=== PATIENT | female | born 1950 | race American Indian/Alaskan Native ===

== ENCOUNTER 2021-06-23 17:17 | Inpatient (IN) | payer MEDICARE ==
[2021-06-23] MEDS ORDERED: SODIUM CHLORIDE 0.9% 1000 ML 1,000 ML IV ONE (17:24)
--- NOTE | 2021-06-23 17:53 | XRay Report ---
CHEST 1 VIEW 06/23/2021 4:46 PM INDICATION / CLINICAL INFORMATION: Lightheadedness/Dizziness. COMPARISON: None available. FINDINGS: SUPPORT DEVICES: None. HEART / MEDIASTINUM: No significant abnormality. LUNGS / PLEURA: No significant pulmonary or pleural abnormality. No pneumothorax. ADDITIONAL FINDINGS: No significant additional findings. IMPRESSION: 1. No acute findings. Signer Name: Casimiro Langford MD Signed: 06/23/2021 5:48 PM Workstation Name: [id number]
[2021-06-23 18:03] LABS: Basophils % (Auto) 0.8 % (0.0-1.8); Eosinophils % (Auto) 0.6 % (0.0-4.3); Hematocrit 40.1 % (30.3-42.9); Hemoglobin 13.4 gm/dl (10.1-14.3); Lymphocytes # (Auto) 1.4 K/mm3 (1.2-5.4); Lymphocytes % (Auto) 28.1 % (13.4-35.0); Mean Corpuscular HGB Conc 34 % (30-34); Mean Corpuscular Volume 94 fl (79-97); Monocytes # (Auto) 0.4 K/mm3 (0.0-0.8); Monocytes % (Auto) 9.1 % (0.0-7.3); Platelet Count 225 K/mm3 (140-440); Red Blood Count 4.28 M/mm3 (3.65-5.03); Red Cell Distribution Width 14.3 % (13.2-15.2)
[2021-06-23 18:21] LABS: Creatine Kinase MB 2.6 ng/mL (0.0-4.0)
[2021-06-23 18:23] LABS: Alanine Aminotransferase 10 units/L (7-56); Albumin 4.6 g/dL (3.9-5); BUN/Creatinine Ratio 17; Blood Urea Nitrogen 15 mg/dL (7-17); Calcium 9.5 mg/dL (8.4-10.2); Hemolysis Index 5
--- NOTE | 2021-06-23 19:13 | Cat Scan Report ---
CT head/brain wo con INDICATION / CLINICAL INFORMATION: 70 years Female; Lightheadedness/Dizziness. TECHNIQUE: Routine CT head without contrast. All CT scans at this location are performed using CT dos e reduction for ALARA by means of automated exposure control. COMPARISON: None. FINDINGS: BRAIN / INTRACRANIAL CONTENTS: Prominent ventricular system seen. Sulcal markings about the cerebral convexities are less well visualized than expected. The temporal horns of the lateral ventricles are within normal limits. Normal pressure hydrocephalus or central atrophy might be considered. Otherwise, no acute hemorrhage, mass effect, midline shift, or acute, large territorial infarct. Mild to moderate cerebral atrophy. Mild degree of hippocampal atrophy suggested bilaterally. There are [id number] areas of decreased attenuation in the white matter of the cerebral hemisph eres. These are nonspecific findings and may be related to microangiopathy (hypertension, diabetes, a therosclerosis), given the patient's age. It might be difficult to evaluate for small areas of ischem ia without diffusion imaging by MRI. CRANIOCERVICAL JUNCTION: No significant abnormality. ORBITS: No significant abnormality of visualized orbits. SINUSES / MASTOIDS: Visualized paranasal sinuses and mastoid air cells are essentially clear. ADDITIONAL FINDINGS: Atherosclerotic disease is seen in the anterior circulation. IMPRESSION: 1. Normal pressure hydrocephalus might be consideration. Please clinically correlate. 2. Otherwise, no focal mass, hemorrhage, obstructive hydrocephalus, or acute, large territorial infar ct. Signer Name: Adam Serrano MD, III Signed: 06/23/2021 7:09 PM Workstation Name: [id number]
--- NOTE | 2021-06-23 20:09 | Emergency Department Report ---
ED Dizziness HPI - General Chief Complaint: Dizziness Stated Complaint: WEAKNESS Time Seen by Provider: 06/23/21 17:24 Source: patient Mode of arrival: Ambulatory Limitations: No Limitations - History of Present Illness Initial Comments: dizziness with loss of balance x4 days, pt states that she has fallen three time and hit her head on the bed several days ago. Pt states that she feels like her legs aren't there. Complaint: dizziness, lightheadedness -: Gradual, days(s) Timing: constant Description: lightheadedness, off-balance History of Same: No History of Trauma: No Severity: mild Improves With: nothing - Related Data Previous Rx's Medication Instructions Recorded Last Taken Type levoFLOXacin [Levaquin] 750 mg PO QDAY #4 tablet 11/11/18 Unknown Rx oxyCODONE /ACETAMINOPHEN [Percocet 1 tab PO Q6HR PRN #10 tablet 11/11/18 Unknown Rx 5/325] Allergies Allergy/AdvReac Type Severity Reaction Status Date / Time acetaminophen AdvReac Rash,SEVERE Unverified 09/18/15 11:48 HEADACHE Estrogens AdvReac Unknown Unverified 09/18/15 11:48 tramadol AdvReac Rash,ITCHIN Verified 06/23/21 17:24 G ED Review of Systems ROS: Stated complaint: WEAKNESS Other details as noted in HPI Constitutional: denies: chills, fever Eyes: denies: eye pain, eye discharge, vision change ENT: denies: ear pain, throat pain Respiratory: denies: cough, shortness of breath, wheezing Cardiovascular: denies: chest pain, palpitations Endocrine: no symptoms reported Gastrointestinal: denies: abdominal pain, nausea, diarrhea Genitourinary: denies: urgency, dysuria, discharge Musculoskeletal: denies: back pain, joint swelling, arthralgia Skin: denies: rash, lesions Neurological: denies: headache, weakness, paresthesias Psychiatric: denies: anxiety, depression Hematological/Lymphatic: denies: easy bleeding, easy bruising ED Past Medical Hx - Past Medical History Previous Medical History?: No Hx Hypertension: No Hx COPD: Yes Hx HIV: No - Social History Smoking Status: Never Smoker - Medications Home Medications: Home Medications Medication Instructions Recorded Confirmed Last Taken Type levoFLOXacin [Levaquin] 750 mg PO QDAY #4 tablet 11/11/18 Unknown Rx oxyCODONE /ACETAMINOPHEN [Percocet 1 tab PO Q6HR PRN #10 tablet 11/11/18 Unknown Rx 5/325] ED Physical Exam - General Limitations: No Limitations General appearance: alert, in no apparent distress - Head Head exam: Present: atraumatic, normocephalic - Eye Eye exam: Present: normal appearance - ENT ENT exam: Present: mucous membranes moist - Neck Neck exam: Present: normal inspection - Respiratory Respiratory exam: Present: normal lung sounds bilaterally. Absent: respiratory distress - Cardiovascular Cardiovascular Exam: Present: regular rate, normal rhythm. Absent: systolic murmur, diastolic murmur, rubs, gallop - GI/Abdominal GI/Abdominal exam: Present: soft, normal bowel sounds - Extremities Exam Extremities exam: Present: normal inspection - Back Exam Back exam: Present: normal inspection - Neurological Exam Neurological exam: Present: alert, oriented X3 - Expanded Neurological Exam Expanded Patient oriented to: Present: person, place Speech: Present: fluid speech Motor strength exam: RUE: 3, LUE: 3, RLE: 3, LLE: 3 Best Eye Response ([place]): (4) open spontaneously Best Motor Response ([place]): (6) obeys commands Best Verbal Response ([place]): (5) oriented [place] Total: 15 - Psychiatric Psychiatric exam: Present: normal affect, normal mood - Skin Skin exam: Present: warm, dry, intact, normal color. Absent: rash ED Course Vital Signs 06/23/21 06/23/21 17:23 18:49 Temperature 98.3 F Pulse Rate 103 H 88 Respiratory 20 Rate Blood Pressure 122/85 O2 Sat by Pulse 97 Oximetry ED Medical Decision Making - Lab Data Result diagrams: 06/23/21 17:33 06/23/21 17:33 - EKG Data -: EKG Interpreted by Ct EKG shows normal: sinus rhythm Rate: normal - EKG Data When compared to previous EKG there are: no significant change - Radiology Data Radiology results: report reviewed, image reviewed - Medical Decision Making work up unremarkable , head ct showed possible hydro , will admit for MRI , vss no distress Critical care attestation.: If time is entered above; I have spent that time in minutes in the direct care of this critically ill patient, excluding procedure time. ED Disposition Clinical Impression: Dizziness, Weakness Disposition: ADMITTED INPATIENT Is pt being admited?: Yes Does the pt Need Aspirin: No Condition: Stable Referrals: PRIMARY CARE,MD [Primary Care Provider] - 3-5 Days
[2021-06-23] MEDS ORDERED: ALBUTEROL 2.5 MG/3 ML NEBU IH PRN (21:16)
[2021-06-23] MEDS ORDERED: ONDANSETRON 4 MG/2 ML INJ IV PRN (21:16)
[2021-06-23] MEDS ORDERED: ACETAMINOPHEN 325 MG TAB PO PRN (21:16)
[2021-06-23] MEDS ORDERED: HYDROmorphone 1 MG/1 ML INJ IV PRN (21:16)
--- NOTE | 2021-06-23 21:26 | History and Physical Report ---
History of Present Illness Date of examination: 06/23/21 Date of admission: 06/23/21 Chief complaint: Dizziness Lightheadedness History of present illness: 70 years old female with history of hypertension, COPD was brought to the emergency room because of dizziness with loss of balance x4 days.patient also complained of lightheadedness pt states that she has fallen three time and hit her head on the bed several days ago. Pt states that she feels like her legs are n't there. Patient also complained of decreased sensation in the legs and blurred vision. In the emergency room work up unremarkable , head ct showed possible hydro , so going to admit the patient we will put the patient on stroke pathway, consult neurology and order MRI of the brain with and without Past History Past Medical History: COPD, HIV/AIDS, hypertension Past Surgical History: No surgical history Social history: other (No smoke) Family history: hypertension Medications and Allergies Allergies Allergy/AdvReac Type Severity Reaction Status Date / Time acetaminophen AdvReac Rash,SEVERE Unverified 09/18/15 11:48 HEADACHE Estrogens AdvReac Unknown Unverified 09/18/15 11:48 tramadol AdvReac Rash,ITCHIN Verified 06/23/21 17:24 G Home Medications Medication Instructions Recorded Confirmed Last Taken Type levoFLOXacin [Levaquin] 750 mg PO QDAY #4 tablet 11/11/18 Unknown Rx oxyCODONE /ACETAMINOPHEN [Percocet 1 tab PO Q6HR PRN #10 tablet 11/11/18 Unknown Rx 5/325] Review of Systems All systems: negative Constitutional: weakness Neurological: weakness, other (Decreased sensation) Exam - Constitutional Vitals: Temp Pulse Resp BP Pulse Ox 98.3 F 88 20 122/85 97 06/23/21 17:23 06/23/21 18:49 06/23/21 17:23 06/23/21 17:23 06/23/21 17:23 General appearance: Present: no acute distress, well-nourished - EENT Eyes: Present: PERRL ENT: hearing intact, clear oral mucosa - Neck Neck: Present: supple, normal ROM - Respiratory Respiratory effort: normal Respiratory: bilateral: diminished - Cardiovascular Heart Sounds: Present: S1 & S2. Absent: rub, click - Extremities Extremities: pulses symmetrical, No edema Peripheral Pulses: within normal limits - Abdominal General gastrointestinal: Present: soft, non-tender, non-distended, normal bowel sounds Female genitourinary: Present: normal - Integumentary Integumentary: Present: clear, warm, dry - Musculoskeletal Musculoskeletal: gait normal, strength equal bilaterally - Psychiatric Psychiatric: appropriate mood/affect, intact judgment & insight - Neurologic Neurologic: CNII-XII intact, moves all extremities HEART Score - HEART Score Troponin: Troponin T < 0.010 ng/mL (0.00-0.029) 06/23/21 17:33 Results - Labs CBC & Chem 7: 06/23/21 17:33 06/23/21 17:33 Labs: Laboratory Last Values WBC 4.9 K/mm3 (4.5-11.0) 06/23/21: RBC 4.28 M/mm3 (3.65-5.03) 06/23/21: Hgb 13.4 gm/dl (10.1-14.3) 06/23/21: Hct 40.1 % (30.3-42.9) 06/23/21: MCV 94 fl (79-97) 06/23/21 17: MCH 31 pg (28-32) 06/23/21 17: MCHC 34 % (30-34) 06/23/21: RDW 14.3 % (13.2-15.2) 06/23/21: Plt Count 225 K/mm3 (140-440) 06/23/21 17: Lymph % (Auto) 28.1 % (13.4-35.0) 06/23/21 17: [place] % (Auto) 9.1 % (0.0-7.3) H 06/23/21 17: Eos % (Auto) 0.6 % (0.0-4.3) 06/23/21 17: Baso % (Auto) 0.8 % (0.0-1.8) 06/23/21: Lymph # (Auto) 1.4 K/mm3 (1.2-5.4) 06/23/21: [place] # (Auto) 0.4 K/mm3 (0.0-0.8) 06/23/21 17: Eos # (Auto) 0.0 K/mm3 (0.0-0.4) 06/23/21 17:33 Baso # (Auto) 0.0 K/mm3 (0.0-0.1) 06/23/21 17:33 Seg Neutrophils % 61.4 % (40.0-70.0) 06/23/21 17:33 Seg Neutrophils # 3.0 K/mm3 (1.8-7.7) 06/23/21 17:33 Sodium 142 mmol/L (137-145) 06/23/21 17:33 Potassium 3.5 mmol/L (3.6-5.0) L 06/23/21 17:33 Chloride 103.2 mmol/L (98-107) 06/23/21 17:33 Carbon Dioxide 22 mmol/L (22-30) 06/23/21 17:33 Anion Gap 20 mmol/L 06/23/21 17:33 BUN 15 mg/dL (7-17) 06/23/21 17:33 Creatinine 0.9 mg/dL (0.6-1.2) 06/23/21 17:33 Estimated GFR > 60 ml/min 06/23/21 17:33 BUN/Creatinine Ratio 17 % 06/23/21 17:33 Glucose 122 mg/dL (65-100) H 06/23/21 17:33 POC Glucose 140 mg/dL (70-105) H 06/23/21 17:20 Calcium 9.5 mg/dL (8.4-10.2) 06/23/21 17:33 Total Bilirubin 1.00 mg/dL (0.1-1.2) 06/23/21 17:33 AST 14 units/L (5-40) 06/23/21 17:33 ALT 10 units/L (7-56) 06/23/21 17:33 Alkaline Phosphatase 87 units/L (35-129) 06/23/21 17:33 Total Creatine Kinase 106 units/L (30-135) 06/23/21 17:33 CK-MB (CK-2) 2.6 ng/mL (0.0-4.0) 06/23/21 17:33 CK-MB (CK-2) Rel Index 2.4 (0-4) 06/23/21 17:33 Troponin T < 0.010 ng/mL (0.00-0.029) 06/23/21 17:33 Total Protein 7.1 g/dL (6.3-8.2) 06/23/21 17:33 Albumin 4.6 g/dL (3.9-5) 06/23/21 17:33 Albumin/Globulin Ratio 1.8 % 06/23/21 17:33 Plasma/Serum Alcohol < 0.01 % (0-0.07) 06/23/21 17:33 - Imaging and Cardiology CT Scan - head: report reviewed Assessment and Plan VTE prophylaxis?: Mechanical Plan of care discussed with patient/family: Yes - Patient Problems (1) Dizziness Current Visit: Yes Status: Acute Plan to address problem: Admit the patient to the medical telemetry. NPO. Aspirin 325 mg p.o. daily. Lipitor 40 mg p.o. daily. MRI brain with and without contrast. MRI of the brain and neck with and without contrast. Neurology evaluation. PT OT any speech (2) Weakness Current Visit: Yes Status: Acute Plan to address problem: Will continue the home medication, PT OT any speech evaluation (3) COPD (chronic obstructive pulmonary disease) Current Visit: Yes Status: Acute Plan to address problem: Oxygen via nasal cannula 3 L/min. DuoNeb by nebulizer every 4 hours. Albuterol via nebulizer every 4 hours as needed (4) Hypertension Current Visit: Yes Status: Acute Plan to address problem: Labetalol 10 mg IV every 1 hour as needed. We continue the home medication (5) HIV (human immunodeficiency virus infection) Current Visit: Yes Status: Acute Plan to address problem: Stable. Continue home medication. Outpatient follow-up with infectious disease (6) DVT prophylaxis Current Visit: No Status: Acute Plan to address problem: SCD for DVT prophylaxis. Pepcid 20 mg p.o. twice daily for GI prophylaxis. Patient is a full code
[2021-06-23] MEDS ORDERED: D5W/0.9% NACL 1,000 ML IV SCH (22:00)
[2021-06-24] MEDS ORDERED: SODIUM CHLORIDE 0.9% 1000 ML 1,000 ML ONE (00:39)
[2021-06-24] MEDS: MORPHINE 2 MG/1 ML INJ IV PRN ×2 (00:49→05:06)
[2021-06-24] MEDS: FAMOTIDINE 20 MG TAB PO SCH ×3 (00:49→21:48)
[2021-06-24] MEDS: IPRATROPIUM/ALBUTEROL SULFATE 3 ML AMPUL.NEB IH SCH ×4 (03:15→21:13)
[2021-06-24 06:03] LABS: Basophils % (Auto) 0.4 % (0.0-1.8); Eosinophils # (Auto) 0.2 K/mm3 (0.0-0.4); Eosinophils % (Auto) 3.4 % (0.0-4.3); Hematocrit 35.5 % (30.3-42.9); Hemoglobin 11.7 gm/dl (10.1-14.3); Lymphocytes # (Auto) 1.9 K/mm3 (1.2-5.4); Lymphocytes % (Auto) 40.4 % (13.4-35.0); Mean Corpuscular HGB Conc 33 % (30-34); Mean Corpuscular Volume 94 fl (79-97); Monocytes # (Auto) 0.6 K/mm3 (0.0-0.8); Monocytes % (Auto) 12.6 % (0.0-7.3); Platelet Count 185 K/mm3 (140-440); Red Blood Count 3.76 M/mm3 (3.65-5.03); Red Cell Distribution Width 14.2 % (13.2-15.2)
[2021-06-24 06:24] LABS: Blood Urea Nitrogen 11 mg/dL (7-17); Calcium 8.8 mg/dL (8.4-10.2); Chol/HDL Ratio 5.73 %; HDL Cholesterol 42 mg/dL (40-59); Hemolysis Index 4; LDL Cholesterol,Direct 183 mg/dL (50-130)
[2021-06-24 06:28] LABS: BUN/Creatinine Ratio 16
--- NOTE | 2021-06-24 09:48 | Progress Note ---
Assessment and Plan Assessment and plan: -- Dizziness Fall precautions physical therapy occupational therapy Orthostats, supportive care --Generalized weakness Will continue the home medication, PT OT any speech evaluation --COPD (chronic obstructive pulmonary disease) well compensated Oxygen via nasal cannula 3 L/min. DuoNeb by nebulizer every 4 hours. Albuterol via nebulizer every 4 hours as needed -- Hypertension; moderate control Labetalol 10 mg IV every 1 hour as needed. Closely monitor blood pressures and adjust medications as needed --HIV (human immunodeficiency virus infection) Stable. Continue home medication. Outpatient follow-up with infectious disease --Full CODE STATUS; --DVT prophylaxis SCD for DVT prophylaxis. Pepcid 20 mg p.o. twice daily for GI prophylaxis. Closely monitor the patient and adjust the management as needed Plan of care reviewed with the patient and her nurse History Interval history: I have seen and examined the patient at the bedside Patient's chart and medications reviewed patient had recurrent Falls Patient reports that she did not lose consciousness She has some chronic back problems Complains of chronic back pain Vital signs noted Hospitalist Physical - Constitutional Vitals: Temp Pulse Resp BP Pulse Ox 98.5 F 56 L 18 100/56 95 06/24/21 07:43 06/24/21 07:43 06/24/21 07:43 06/24/21 07:43 06/24/21 07:43 General appearance: Present: no acute distress, well-nourished - EENT Eyes: Present: PERRL, EOM intact - Neck Neck: Present: supple, normal ROM - Respiratory Respiratory effort: normal Respiratory: bilateral: diminished, negative: rales, rhonchi, wheezing - Cardiovascular Rhythm: regular Heart Sounds: Present: S1 & S2 - Extremities Extremities: no ischemia, No edema - Abdominal General gastrointestinal: soft, non-tender, non-distended, normal bowel sounds - Integumentary Integumentary: Present: clear, warm - Psychiatric Psychiatric: appropriate mood/affect, cooperative - Neurologic Neurologic: moves all extremities HEART Score - HEART Score Troponin: Troponin T < 0.010 ng/mL (0.00-0.029) 06/23/21 17:33 Results - Labs CBC & Chem 7: 06/24/21 05:33 06/24/21 05:33 Labs: Laboratory Last Values WBC 4.6 K/mm3 (4.5-11.0) 06/24/21 05:33 RBC 3.76 M/mm3 (3.65-5.03) 06/24/21 05:33 Hgb 11.7 gm/dl (10.1-14.3) 06/24/21 05:33 Hct 35.5 % (30.3-42.9) 06/24/21 05:33 MCV 94 fl (79-97) 06/24/21 05:33 MCH 31 pg (28-32) 06/24/21 05:33 MCHC 33 % (30-34) 06/24/21 05:33 RDW 14.2 % (13.2-15.2) 06/24/21 05:33 Plt Count 185 K/mm3 (140-440) 06/24/21 05:33 Lymph % (Auto) 40.4 % (13.4-35.0) H 06/24/21 05:33 [place] % (Auto) 12.6 % (0.0-7.3) H 06/24/21 05:33 Eos % (Auto) 3.4 % (0.0-4.3) 06/24/21 05:33 Baso % (Auto) 0.4 % (0.0-1.8) 06/24/21 05:33 Lymph # (Auto) 1.9 K/mm3 (1.2-5.4) 06/24/21 05:33 [place] # (Auto) 0.6 K/mm3 (0.0-0.8) 06/24/21 05:33 Eos # (Auto) 0.2 K/mm3 (0.0-0.4) 06/24/21 05:33 Baso # (Auto) 0.0 K/mm3 (0.0-0.1) 06/24/21 05:33 Seg Neutrophils % 43.2 % (40.0-70.0) 06/24/21 05:33 Seg Neutrophils # 2.0 K/mm3 (1.8-7.7) 06/24/21 05:33 Sodium 143 mmol/L (137-145) 06/24/21 05:33 Potassium 3.4 mmol/L (3.6-5.0) L 06/24/21 05:33 Chloride 108.9 mmol/L (98-107) H 06/24/21 05:33 Carbon Dioxide 22 mmol/L (22-30) 06/24/21 05:33 Anion Gap 16 mmol/L 06/24/21 05:33 BUN 11 mg/dL (7-17) 06/24/21 05:33 Creatinine 0.7 mg/dL (0.6-1.2) 06/24/21 05:33 Estimated GFR > 60 ml/min 06/24/21 05:33 BUN/Creatinine Ratio 16 % 06/24/21 05:33 Glucose 111 mg/dL (65-100) H 06/24/21 05:33 POC Glucose 140 mg/dL (70-105) H 06/23/21 17:20 Calcium 8.8 mg/dL (8.4-10.2) 06/24/21 05:33 Total Bilirubin 1.00 mg/dL (0.1-1.2) 06/23/21 17:33 AST 14 units/L (5-40) 06/23/21 17:33 ALT 10 units/L (7-56) 06/23/21 17:33 Alkaline Phosphatase 87 units/L (35-129) 06/23/21 17:33 Total Creatine Kinase 106 units/L (30-135) 06/23/21 17:33 CK-MB (CK-2) 2.6 ng/mL (0.0-4.0) 06/23/21 17:33 CK-MB (CK-2) Rel Index 2.4 (0-4) 06/23/21 17:33 Troponin T < 0.010 ng/mL (0.00-0.029) 06/23/21 17:33 Total Protein 7.1 g/dL (6.3-8.2) 06/23/21 17:33 Albumin 4.6 g/dL (3.9-5) 06/23/21 17:33 Albumin/Globulin Ratio 1.8 % 06/23/21 17:33 Triglycerides 47 mg/dL (2-149) 06/24/21 05:33 Cholesterol 241 mg/dL (50-199) H 06/24/21 05:33 LDL Cholesterol Direct 183 mg/dL (50-130) H 06/24/21 05:33 HDL Cholesterol 42 mg/dL (40-59) 06/24/21 05:33 Cholesterol/HDL Ratio 5.73 % 06/24/21 05:33 Plasma/Serum Alcohol < 0.01 % (0-0.07) 06/23/21 17:33 Active Medications - Current Medications Current Medications: Generic Name Dose Route Start Last Admin Trade Name Freq PRN Reason Stop Dose Admin Acetaminophen 650 mg 06/23/21 21:16 Acetaminophen 325 Mg Tab PO Q4H PRN Pain MILD(1-3)/Fever >100.5/BARKER Albuterol 2.5 mg 06/23/21 21:16 Albuterol 2.5 Mg/3 Ml Nebu IH Q3HRT PRN Shortness Of Breath Albuterol/Ipratropium 1 ampul 06/24/21 02:00 06/24/21 09:24 Ipratropium/Albuterol Sulfate 3 Ml Ampul.Neb IH Not Given Q6HRT MAIK Aspirin 325 mg 06/24/21 10:00 Aspirin 325 Mg Tab PO QDAY MAIK Atorvastatin Calcium 40 mg 06/23/21 22:00 06/24/21 00:49 Atorvastatin 40 Mg Tab PO 40 mg QHS MAIK Administration Famotidine 20 mg 06/23/21 22:00 06/24/21 00:49 Famotidine 20 Mg Tab PO 20 mg BID MAIK Administration Hydromorphone HCl 0.5 mg 06/23/21 21:16 Hydromorphone 1 Mg/1 Ml Inj IV Q3H PRN Pain , Severe (7-10) Dextrose/Sodium Chloride 1,000 mls @ 100 mls/hr 06/23/21 22:00 06/24/21 02:01 D5ns IV 100 mls/hr DIRECT MAIK Administration Labetalol HCl 10 mg 06/23/21 21:16 Labetalol 20 Mg/4 Ml Inj IV Q5MIN PRN to maintain SBP < 180 Morphine Sulfate 2 mg 06/23/21 21:16 06/24/21 05:06 Morphine 2 Mg/1 Ml Inj IV 2 mg Q4H PRN Administration Pain, Moderate (4-6) Ondansetron HCl 4 mg 06/23/21 21:16 06/24/21 00:49 Ondansetron 4 Mg/2 Ml Inj IV 4 mg Q8H PRN Administration Nausea And Vomiting Sodium Chloride 10 ml 06/23/21 22:00 06/24/21 02:06 Sodium Chloride 0.9% 10 Ml Flush Syringe IV Not Given BID MAIK Sodium Chloride 10 ml 06/23/21 21:16 Sodium Chloride 0.9% 10 Ml Flush Syringe IV PRN PRN LINE FLUSH
[2021-06-24] MEDS: ASPIRIN 325 MG TAB PO SCH (11:00)
--- NOTE | 2021-06-24 11:27 | Magnetic Resonance Report ---
MRI BRAIN WITHOUT CONTRAST INDICATION / CLINICAL INFORMATION: stroke--general weakness. TECHNIQUE: Multisequence, multiplanar images were obtained. COMPARISON: CT head dated 06/23/2021 FINDINGS: CEREBRAL and CEREBELLAR HEMISPHERES: No evidence of mass or mass effect. No midline shift. No acute hemorrhage. No diffusion restriction to suggest acute infarct. No extra-axial fluid collection. M ild increased T2 signal in the periventricular white matter is noted consistent with chronic microang iopathy. No chronic infarct is identified. VENTRICLES: Slightly prominent but symmetric. VISUALIZED ORBITS: No significant abnormality. VISUALIZED PARANASAL SINUSES: No significant abnormality. ADDITIONAL FINDINGS: None. IMPRESSION: No evidence for acute ischemia, hemorrhage or mass. Nonspecific chronic periventricular white matter changes. Mild prominence of the ventricular system is again noted which could be related to normal pressure hy drocephalus or central atrophy. Unchanged since the CT head performed yesterday. Signer Name: Peter Reynoso Jr, MD Signed: 06/24/2021 11:22 AM Workstation Name: [id number]
--- NOTE | 2021-06-24 11:30 | Magnetic Resonance Report ---
MRA HEAD WITHOUT CONTRAST HISTORY: Stroke, generalized weakness COMPARISON: None. TECHNIQUE: Routine MRA of the head is performed. 3-D/MIP reformats postprocessed. CONTRAST: None. FINDINGS: Intracranial vertebral arteries: No significant abnormality. Basilar artery: No significant abnormality. Posterior cerebral arteries: No significant abnormality. Intracranial internal carotid arteries: No significant abnormality. Anterior cerebral arteries: No significant abnormality. Middle cerebral arteries: No significant abnormality. Variants and anomalies:None Additional findings: None. IMPRESSION: No significant abnormality. No evidence for large vessel occlusion, stenosis or aneurysm. Signer Name: Peter Reynoso Jr, MD Signed: 06/24/2021 11:25 AM Workstation Name: [id number]
--- NOTE | 2021-06-24 13:33 | Cat Scan Report ---
CT angio neck INDICATION / CLINICAL INFORMATION: 70 years Female; Stenosis 100 ML OMNI 350 . TECHNIQUE: Thin cut axial images obtained through the head during IV bolus contrast administration. S agittal, coronal, and 3 plane MIP reconstructions performed by the technologist. NASCET type criteria used evaluate stenoses. All CT scans at this location are performed using CT dose reduction for ALAR A by means of automated exposure control. COMPARISON: None available. FINDINGS: CAROTID ARTERIES: There are foci of atherosclerotic calcification involving carotid bifurcations with out significant stenosis by NASCET to criteria. The motion and beam hardening degrade the image quali ty. However, the cervical ICAs appear to demonstrate appropriate caliber without focal stenosis. VERTEBRAL ARTERIES: There is notable uncovertebral joint hypertrophy at C3-4 which results in milder to moderate to narrowing of the cervical left vertebral artery within the transverse foramen. There i s no significant focal narrowing involving the right vertebral artery. ARCH: The arch of vessels appear unremarkable without significant stenosis. ADDITIONAL FINDINGS: There is mild atherosclerotic calcification involving intracranial ICAs without clear evidence of significant stenosis. There are mild emphysematous changes of the visualized upper lungs. IMPRESSION: There are foci of atherosclerotic calcification involving carotid bifurcations without significant st enosis of the cervical carotid arteries by NASCET criteria. There is mild to moderate focal narrowing of the left vertebral artery within the transverse foramen at C3 level. The study was specified as stat and dictated emergently at 12:27 PM Central standard time. Signer Name: Steve Banegas MD Signed: 06/24/2021 1:29 PM Workstation Name: [id number]
--- NOTE | 2021-06-24 23:52 | Consultation ---
History of Present Illness Consult date: 06/24/21 Reason for Consult: Dizziness Chief complaint: Dizziness History of present illness: 70 yo right-handed female with htn, hiv/aids, copd, who presents with light- headedness w/ worsening with sitting/standing up and noted with unsteadiness while light-headed w/ unsteadiness of gait. Patient denies any focal neurologic deficits. Past History Past Medical History: COPD, HIV/AIDS, hypertension Past Surgical History: No surgical history Social history: other (No smoke) Family history: hypertension Medications and Allergies Allergies Allergy/AdvReac Type Severity Reaction Status Date / Time tramadol Allergy Rash,ITCHIN Verified 06/24/21 00:42 G acetaminophen AdvReac Rash,SEVERE Unverified 09/18/15 11:48 HEADACHE Estrogens AdvReac Unknown Verified 06/24/21 00:27 Home Medications Medication Instructions Recorded Confirmed Last Taken Type levoFLOXacin [Levaquin] 750 mg PO QDAY #4 tablet 11/11/18 Unknown Rx oxyCODONE /ACETAMINOPHEN [Percocet 1 tab PO Q6HR PRN #10 tablet 11/11/18 Unknown Rx 5/325] Active Meds: Active Medications Acetaminophen (Acetaminophen 325 Mg Tab) 650 mg PO Q4H PRN PRN Reason: Pain MILD(1-3)/Fever >100.5/BARKER Albuterol (Albuterol 2.5 Mg/3 Ml Nebu) 2.5 mg IH Q3HRT PRN PRN Reason: Shortness Of Breath Albuterol/Ipratropium (Ipratropium/Albuterol Sulfate 3 Ml Ampul.Neb) 1 ampul IH Q6HRT [facility] Last Admin: 06/24/21 21:13 Dose: 1 ampul Aspirin (Aspirin 325 Mg Tab) 325 mg PO QDAY [facility] Last Admin: 06/24/21 11:00 Dose: 325 mg Atorvastatin Calcium (Atorvastatin 40 Mg Tab) 40 mg PO QHS [facility] Last Admin: 06/24/21 21:48 Dose: 40 mg Famotidine (Famotidine 20 Mg Tab) 20 mg PO BID [facility] Last Admin: 06/24/21 21:48 Dose: 20 mg Hydromorphone HCl (Hydromorphone 1 Mg/1 Ml Inj) 0.5 mg IV Q3H PRN PRN Reason: Pain , Severe (7-10) Labetalol HCl (Labetalol 20 Mg/4 Ml Inj) 10 mg IV Q5MIN PRN PRN Reason: to maintain SBP < 180 Morphine Sulfate (Morphine 2 Mg/1 Ml Inj) 2 mg IV Q4H PRN PRN Reason: Pain, Moderate (4-6) Last Admin: 06/24/21 05:06 Dose: 2 mg Ondansetron HCl (Ondansetron 4 Mg/2 Ml Inj) 4 mg IV Q8H PRN PRN Reason: Nausea And Vomiting Last Admin: 06/24/21 00:49 Dose: 4 mg Sodium Chloride (Sodium Chloride 0.9% 10 Ml Flush Syringe) 10 ml IV BID MAIK Last Admin: 06/24/21 21:49 Dose: 10 ml Sodium Chloride (Sodium Chloride 0.9% 10 Ml Flush Syringe) 10 ml IV PRN PRN PRN Reason: LINE FLUSH Physical Examination - Vital Signs Vital Signs: Vital Signs Temp Pulse Resp BP Pulse Ox 98.3 F 103 H 20 122/85 97 06/23/21 17:23 06/23/21 17:23 06/23/21 17:23 06/23/21 17:23 06/23/21 17:23 - Physical Exam Narrative exam: Gen: nad, well-nourished; Head: normocephalic; Eyes: no gaze deviation; no ptosis; ENT: normal vocalization; CVS: warm and well-perfused; Pulm: no respiratory distress; GI: appears non-distended; Ext: no cyanosis appreciated at distal extremities; Skin: no acute rash at distal extremities; Heme: no pathologic ecchymosis appreciated at distal extremities; Neuro: alert, oriented to name, age, month, year, surroundings, no dysarthria, no aphasia, CN 2 - PERRL, visual schwartz grossly intact, CN 3, 4, 6 - EOMI, CN 5 - facial sensation symmetric to light touch, CN 7 - facial movement symmetric, CN 8 - hearing grossly intact, CN 9, 10 - uvula midline, CN 11 symmetric shoulder movement, CN 12 - tongue midline; Motor - at least 4/5 at all exts; Sensory - light touch symmetric, Cerebellar - fnf intact, Gait - deferred secondary to fall risk; Results - Laboratory Findings CBC and BMP: 06/24/21 05:33 06/24/21 05:33 Abnormal Lab Findings: Abnormal Labs 05/03/22 05/03/22 05/03/22 17:20 17:33 17:33 Lymph % (Auto) [place] % (Auto) 9.1 H Potassium 3.5 L Chloride Glucose 122 H POC Glucose 140 H Cholesterol LDL Cholesterol Direct 06/24/21 06/24/21 05:33 05:33 Lymph % (Auto) 40.4 H [place] % (Auto) 12.6 H Potassium 3.4 L Chloride 108.9 H Glucose 111 H POC Glucose Cholesterol 241 H LDL Cholesterol Direct 183 H Assessment and Plan 70 yo right-handed female with htn, hiv/aids, copd, who presents with light- headedness w/ worsening with sitting/standing up and noted with unsteadiness while light-headed w/ unsteadiness of gait. Patient denies any focal neurologic deficits. 1. Light-headed / Dizziness / Presyncope - mri brain and cta head/neck are unremarkable; recommend csf evaluation w/ cell count w/ diff, protein, glucose, cytology, flow cytometry; non-neurogenic workup per primary team. 2. HIV/AIDS - consider cd4 count; per primary team. 3. Hypetension - aim for normotension. 4. No further acute neurologic workup other than above mentioned csf evaluation. Carter Scott MD Neurology [id number]
[2021-06-25] MEDS: MORPHINE 2 MG/1 ML INJ IV PRN (00:05)
[2021-06-25] MEDS: IPRATROPIUM/ALBUTEROL SULFATE 3 ML AMPUL.NEB IH SCH ×4 (02:55→21:00)
[2021-06-25] MEDS: FAMOTIDINE 20 MG TAB PO SCH ×2 (09:39→21:25)
[2021-06-25] MEDS: ASPIRIN 325 MG TAB PO SCH (09:39)
--- NOTE | 2021-06-25 10:46 | Electrocardiograph Report ---
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
--- NOTE | 2021-06-26 00:06 | Progress Note ---
Assessment and Plan Assessment and plan: -No history of HIV[patient denies] Patient was seen by orthopedic/neuro from [facility], patient does not know the details. We will try to get records from [facility] --Chronic low back pain /lower extremity numbness and weakness CT lumbar spine: 06/27/2019 Vertebral compression fracture at L1 and L3 as well as L2 [no new fractures] Also has moderate thecal sac stenosis right foraminal stenosis at L4-L5 and L5- S1 disc levels. Consult orthopedic surgeon[discussed with Dr. Castle] Telemetry neurologist following PT[physical therapy] recommended home health PT and rolling walker -- Dizziness/generalized weakness Fall precautions physical therapy occupational therapy Orthostats, supportive care Neurology evaluated, patient had extensive negative neuro work-up Acute CVA ruled out Will continue the home medication, PT OT any speech evaluation --Constipation; Plenty fluids and fiber, milk of magnesia 1 dose now and daily as needed for constipation --COPD (chronic obstructive pulmonary disease) well compensated Oxygen via nasal cannula 3 L/min. DuoNeb by nebulizer every 4 hours. Albuterol via nebulizer every 4 hours as needed -- Hypertension; moderate control Labetalol 10 mg IV every 1 hour as needed. Closely monitor blood pressures and adjust medications as needed --Full CODE STATUS; --DVT prophylaxis SCD for DVT prophylaxis. Pepcid 20 mg p.o. twice daily for GI prophylaxis. Closely monitor the patient and adjust the management as needed Plan of care reviewed with the patient and her nurse History Interval history: I have seen and examined the patient at the bedside Patient's chart and medications consultants recommendations noted and appreciated Patient continues to have low back pain , patient is able to sit and go to the bathroom independently Patient's chart and medications reviewed, overall patient is getting better Hospitalist Physical - Constitutional Vitals: Temp Pulse Resp BP Pulse Ox 98.4 F 61 18 120/74 98 06/25/21 23:14 06/25/21 23:14 06/25/21 23:14 06/25/21 23:14 06/25/21 23:14 General appearance: Present: no acute distress, mild distress, well-nourished - EENT Eyes: Present: PERRL, EOM intact - Neck Neck: Present: supple, normal ROM - Respiratory Respiratory effort: normal Respiratory: bilateral: diminished, negative: rales, rhonchi, wheezing - Extremities Extremities: no ischemia, No edema - Abdominal General gastrointestinal: soft, non-tender, non-distended, normal bowel sounds - Integumentary Integumentary: Present: clear, warm - Psychiatric Psychiatric: appropriate mood/affect, cooperative - Neurologic Neurologic: moves all extremities HEART Score - HEART Score Troponin: Troponin T < 0.010 ng/mL (0.00-0.029) 06/23/21 17:33 Results - Labs CBC & Chem 7: 06/24/21 05:33 06/24/21 05:33 Labs: Laboratory Last Values WBC 4.6 K/mm3 (4.5-11.0) 06/24/21 05:33 RBC 3.76 M/mm3 (3.65-5.03) 06/24/21 05:33 Hgb 11.7 gm/dl (10.1-14.3) 06/24/21 05:33 Hct 35.5 % (30.3-42.9) 06/24/21 05:33 MCV 94 fl (79-97) 06/24/21 05:33 MCH 31 pg (28-32) 06/24/21 05:33 MCHC 33 % (30-34) 06/24/21 05:33 RDW 14.2 % (13.2-15.2) 06/24/21 05:33 Plt Count 185 K/mm3 (140-440) 06/24/21 05:33 Lymph % (Auto) 40.4 % (13.4-35.0) H 06/24/21 05:33 [place] % (Auto) 12.6 % (0.0-7.3) H 06/24/21 05:33 Eos % (Auto) 3.4 % (0.0-4.3) 06/24/21 05:33 Baso % (Auto) 0.4 % (0.0-1.8) 06/24/21 05:33 Lymph # (Auto) 1.9 K/mm3 (1.2-5.4) 06/24/21 05:33 [place] # (Auto) 0.6 K/mm3 (0.0-0.8) 06/24/21 05:33 Eos # (Auto) 0.2 K/mm3 (0.0-0.4) 06/24/21 05:33 Baso # (Auto) 0.0 K/mm3 (0.0-0.1) 06/24/21 05:33 Seg Neutrophils % 43.2 % (40.0-70.0) 06/24/21 05:33 Seg Neutrophils # 2.0 K/mm3 (1.8-7.7) 06/24/21 05:33 Sodium 143 mmol/L (137-145) 06/24/21 05:33 Potassium 3.4 mmol/L (3.6-5.0) L 06/24/21 05:33 Chloride 108.9 mmol/L (98-107) H 06/24/21 05:33 Carbon Dioxide 22 mmol/L (22-30) 06/24/21 05:33 Anion Gap 16 mmol/L 06/24/21 05:33 BUN 11 mg/dL (7-17) 06/24/21 05:33 Creatinine 0.7 mg/dL (0.6-1.2) 06/24/21 05:33 Estimated GFR > 60 ml/min 06/24/21 05:33 BUN/Creatinine Ratio 16 % 06/24/21 05:33 Glucose 111 mg/dL (65-100) H 06/24/21 05:33 POC Glucose 140 mg/dL (70-105) H 06/23/21 17:20 Calcium 8.8 mg/dL (8.4-10.2) 06/24/21 05:33 Total Bilirubin 1.00 mg/dL (0.1-1.2) 06/23/21 17:33 AST 14 units/L (5-40) 06/23/21 17:33 ALT 10 units/L (7-56) 06/23/21 17:33 Alkaline Phosphatase 87 units/L (35-129) 06/23/21 17:33 Total Creatine Kinase 106 units/L (30-135) 06/23/21 17:33 CK-MB (CK-2) 2.6 ng/mL (0.0-4.0) 06/23/21 17:33 CK-MB (CK-2) Rel Index 2.4 (0-4) 06/23/21 17:33 Troponin T < 0.010 ng/mL (0.00-0.029) 06/23/21 17:33 Total Protein 7.1 g/dL (6.3-8.2) 06/23/21 17:33 Albumin 4.6 g/dL (3.9-5) 06/23/21 17:33 Albumin/Globulin Ratio 1.8 % 06/23/21 17:33 Triglycerides 47 mg/dL (2-149) 06/24/21 05:33 Cholesterol 241 mg/dL (50-199) H 06/24/21 05:33 LDL Cholesterol Direct 183 mg/dL (50-130) H 06/24/21 05:33 HDL Cholesterol 42 mg/dL (40-59) 06/24/21 05:33 Cholesterol/HDL Ratio 5.73 % 06/24/21 05:33 Plasma/Serum Alcohol < 0.01 % (0-0.07) 06/23/21 17:33 Caballero/IV: Voiding Method Toilet Active Medications - Current Medications Current Medications: Generic Name Dose Route Start Last Admin Trade Name Freq PRN Reason Stop Dose Admin Acetaminophen 650 mg 06/23/21 21:16 Acetaminophen 325 Mg Tab PO Q4H PRN Pain MILD(1-3)/Fever >100.5/BARKER Albuterol 2.5 mg 06/23/21 21:16 Albuterol 2.5 Mg/3 Ml Nebu IH Q3HRT PRN Shortness Of Breath Aspirin 325 mg 06/24/21 10:00 06/25/21 09:39 Aspirin 325 Mg Tab PO Not Given QDAY MAIK Atorvastatin Calcium 40 mg 06/23/21 22:00 06/25/21 21:25 Atorvastatin 40 Mg Tab PO 40 mg QHS MAIK Administration Famotidine 20 mg 06/23/21 22:00 06/25/21 21:25 Famotidine 20 Mg Tab PO 20 mg BID MAIK Administration Hydromorphone HCl 0.5 mg 06/23/21 21:16 Hydromorphone 1 Mg/1 Ml Inj IV Q3H PRN Pain , Severe (7-10) Labetalol HCl 10 mg 06/23/21 21:16 Labetalol 20 Mg/4 Ml Inj IV Q5MIN PRN to maintain SBP < 180 Morphine Sulfate 2 mg 06/23/21 21:16 06/25/21 00:05 Morphine 2 Mg/1 Ml Inj IV 2 mg Q4H PRN Administration Pain, Moderate (4-6) Ondansetron HCl 4 mg 06/23/21 21:16 06/24/21 00:49 Ondansetron 4 Mg/2 Ml Inj IV 4 mg Q8H PRN Administration Nausea And Vomiting Sodium Chloride 10 ml 06/23/21 22:00 06/25/21 21:25 Sodium Chloride 0.9% 10 Ml Flush Syringe IV 10 ml BID MAIK Administration Sodium Chloride 10 ml 06/23/21 21:16 Sodium Chloride 0.9% 10 Ml Flush Syringe IV PRN PRN LINE FLUSH
--- NOTE | 2021-06-26 08:58 | Progress Note ---
Assessment and Plan Assessment and plan: --Severe low back pain severe low back pain -No history of HIV[patient denies] Patient was seen by private orthopedic/neuro from [facility], patient does not know the details. We will try to get records from [facility] --Chronic low back pain /lower extremity numbness and weakness CT lumbar spine: 06/27/2019 Vertebral compression fracture at L1 and L3 as well as L2 [no new fractures] Also has moderate thecal sac stenosis right foraminal stenosis at L4-L5 and L5- S1 disc levels. Consult orthopedic surgeon[discussed with Dr. Castle] Telemetry neurologist following PT[physical therapy] recommended home health PT and rolling walker -- Dizziness/generalized weakness Fall precautions physical therapy occupational therapy Orthostats, supportive care Neurology evaluated, patient had extensive negative neuro work-up Acute CVA ruled out Will continue the home medication, PT OT any speech evaluation --Constipation; Plenty fluids and fiber, milk of magnesia 1 dose now and daily as needed for constipation --COPD (chronic obstructive pulmonary disease) well compensated Oxygen via nasal cannula 3 L/min. DuoNeb by nebulizer every 4 hours. Albuterol via nebulizer every 4 hours as needed -- Hypertension; moderate control Labetalol 10 mg IV every 1 hour as needed. Closely monitor blood pressures and adjust medications as needed --Full CODE STATUS; --DVT prophylaxis SCD for DVT prophylaxis. Pepcid 20 mg p.o. twice daily for GI prophylaxis. Closely monitor the patient and adjust the management as needed Plan of care reviewed with the patient and her nurse Follow neurology and orthopedic evaluation recommendation Consider neurosurgical consultation inpatient versus outpatient History Interval history: Seen and examined the patient at the bedside Patient's chart and medications consultants recommendations noted and appreciated Patient complains of severe back pain radiating to bilateral lower extremities Patient's chart and medications reviewed, overall patient is getting better Hospitalist Physical - Constitutional Vitals: Temp Pulse Resp BP Pulse Ox 98.2 F 58 L 14 129/78 92 06/26/21 07:21 06/26/21 07:21 06/26/21 07:21 06/26/21 07:21 06/26/21 07:21 General appearance: Present: no acute distress, mild distress, well-nourished HEART Score - HEART Score Troponin: Troponin T < 0.010 ng/mL (0.00-0.029) 06/23/21 17:33 Results - Labs CBC & Chem 7: 06/24/21 05:33 06/24/21 05:33 Labs: Laboratory Last Values WBC 4.6 K/mm3 (4.5-11.0) 06/24/21 05:33 RBC 3.76 M/mm3 (3.65-5.03) 06/24/21 05:33 Hgb 11.7 gm/dl (10.1-14.3) 06/24/21 05:33 Hct 35.5 % (30.3-42.9) 06/24/21 05:33 MCV 94 fl (79-97) 06/24/21 05:33 MCH 31 pg (28-32) 06/24/21 05:33 MCHC 33 % (30-34) 06/24/21 05:33 RDW 14.2 % (13.2-15.2) 06/24/21 05:33 Plt Count 185 K/mm3 (140-440) 06/24/21 05:33 Lymph % (Auto) 40.4 % (13.4-35.0) H 06/24/21 05:33 [place] % (Auto) 12.6 % (0.0-7.3) H 06/24/21 05:33 Eos % (Auto) 3.4 % (0.0-4.3) 06/24/21 05:33 Baso % (Auto) 0.4 % (0.0-1.8) 06/24/21 05:33 Lymph # (Auto) 1.9 K/mm3 (1.2-5.4) 06/24/21 05:33 [place] # (Auto) 0.6 K/mm3 (0.0-0.8) 06/24/21 05:33 Eos # (Auto) 0.2 K/mm3 (0.0-0.4) 06/24/21 05:33 Baso # (Auto) 0.0 K/mm3 (0.0-0.1) 06/24/21 05:33 Seg Neutrophils % 43.2 % (40.0-70.0) 06/24/21 05:33 Seg Neutrophils # 2.0 K/mm3 (1.8-7.7) 06/24/21 05:33 Sodium 143 mmol/L (137-145) 06/24/21 05:33 Potassium 3.4 mmol/L (3.6-5.0) L 06/24/21 05:33 Chloride 108.9 mmol/L (98-107) H 06/24/21 05:33 Carbon Dioxide 22 mmol/L (22-30) 06/24/21 05:33 Anion Gap 16 mmol/L 06/24/21 05:33 BUN 11 mg/dL (7-17) 06/24/21 05:33 Creatinine 0.7 mg/dL (0.6-1.2) 06/24/21 05:33 Estimated GFR > 60 ml/min 06/24/21 05:33 BUN/Creatinine Ratio 16 % 06/24/21 05:33 Glucose 111 mg/dL (65-100) H 06/24/21 05:33 POC Glucose 140 mg/dL (70-105) H 06/23/21 17:20 Calcium 8.8 mg/dL (8.4-10.2) 06/24/21 05:33 Total Bilirubin 1.00 mg/dL (0.1-1.2) 06/23/21 17:33 AST 14 units/L (5-40) 06/23/21 17:33 ALT 10 units/L (7-56) 06/23/21 17:33 Alkaline Phosphatase 87 units/L (35-129) 06/23/21 17:33 Total Creatine Kinase 106 units/L (30-135) 06/23/21 17:33 CK-MB (CK-2) 2.6 ng/mL (0.0-4.0) 06/23/21 17:33 CK-MB (CK-2) Rel Index 2.4 (0-4) 06/23/21 17:33 Troponin T < 0.010 ng/mL (0.00-0.029) 06/23/21 17:33 Total Protein 7.1 g/dL (6.3-8.2) 06/23/21 17:33 Albumin 4.6 g/dL (3.9-5) 06/23/21 17:33 Albumin/Globulin Ratio 1.8 % 06/23/21 17:33 Triglycerides 47 mg/dL (2-149) 06/24/21 05:33 Cholesterol 241 mg/dL (50-199) H 06/24/21 05:33 LDL Cholesterol Direct 183 mg/dL (50-130) H 06/24/21 05:33 HDL Cholesterol 42 mg/dL (40-59) 06/24/21 05:33 Cholesterol/HDL Ratio 5.73 % 06/24/21 05:33 Plasma/Serum Alcohol < 0.01 % (0-0.07) 06/23/21 17:33 Caballero/IV: Voiding Method Toilet Active Medications - Current Medications Current Medications: Generic Name Dose Route Start Last Admin Trade Name Freq PRN Reason Stop Dose Admin Acetaminophen 650 mg 06/23/21 21:16 Acetaminophen 325 Mg Tab PO Q4H PRN Pain MILD(1-3)/Fever >100.5/BARKER Albuterol 2.5 mg 06/23/21 21:16 Albuterol 2.5 Mg/3 Ml Nebu IH Q3HRT PRN Shortness Of Breath Aspirin 325 mg 06/24/21 10:00 06/25/21 09:39 Aspirin 325 Mg Tab PO Not Given QDAY MAIK Atorvastatin Calcium 40 mg 06/23/21 22:00 06/25/21 21:25 Atorvastatin 40 Mg Tab PO 40 mg QHS MAIK Administration Famotidine 20 mg 06/23/21 22:00 06/25/21 21:25 Famotidine 20 Mg Tab PO 20 mg BID MAIK Administration Hydromorphone HCl 0.5 mg 06/23/21 21:16 Hydromorphone 1 Mg/1 Ml Inj IV Q3H PRN Pain , Severe (7-10) Labetalol HCl 10 mg 06/23/21 21:16 Labetalol 20 Mg/4 Ml Inj IV Q5MIN PRN to maintain SBP < 180 Morphine Sulfate 2 mg 06/23/21 21:16 06/25/21 00:05 Morphine 2 Mg/1 Ml Inj IV 2 mg Q4H PRN Administration Pain, Moderate (4-6) Ondansetron HCl 4 mg 06/23/21 21:16 06/24/21 00:49 Ondansetron 4 Mg/2 Ml Inj IV 4 mg Q8H PRN Administration Nausea And Vomiting Sodium Chloride 10 ml 06/23/21 22:00 06/25/21 21:25 Sodium Chloride 0.9% 10 Ml Flush Syringe IV 10 ml BID MAIK Administration Sodium Chloride 10 ml 06/23/21 21:16 Sodium Chloride 0.9% 10 Ml Flush Syringe IV PRN PRN LINE FLUSH
[2021-06-26] MEDS: FAMOTIDINE 20 MG TAB PO SCH ×2 (10:37→22:24)
[2021-06-26] MEDS: ASPIRIN 325 MG TAB PO SCH (11:29)
--- NOTE | 2021-06-26 13:15 | Cat Scan Report ---
CT LUMBAR SPINE WITHOUT CONTRAST HISTORY: Severe low back pain COMPARISON: None TECHNIQUE: CT images of the lumbar spine were obtained without contrast. Sagittal and coronal reform ats were post-processed.All CT scans at this location are performed using CT dose reduction for ALARA by means of automated exposure control. CONTRAST: CT scan of the lumbar spine from 11/10/2018 FINDINGS: Alignment: S-shaped scoliosis; dextroscoliosis centering at L1 and mild levoscoliosis centering at L4 Vertebrae: L1 vertebral body: Vertebral compression fracture with the almost 80% height loss; methylmethacrylate in the midportion of the body; retropulsion; no bony canal stenoses; neuroforamina are normal L2 vertebral body: Mild compression along the superior endplate of L2; unchanged; neuroforamina and c entral canal normal L3 vertebral body: Old healed vertebral compression fracture along the superior endplate; further hei ght loss since the last CT scan; methylmethacrylate in the body of the L3 extending into the L2-L3 di sc space; retropulsion; moderate thecal sac stenoses; this has progressed at L4 vertebral body: Uncha nged L5 vertebral body: Unchanged Ala of the sacrum: Normal Disc Spaces: L1-L2: Neuroforamina and thecal sac normal L2-L3: Retropulsion; moderate thecal sac stenoses; bulging disc; severe left foraminal stenoses L3-L4: Disc bulge; bilateral facet joint hypertrophic changes; mild thecal sac stenoses L4-L5: Moderate facet joint degenerative changes on the right side; diffuse disc bulge towards right side; moderate right foraminal stenoses L5-S1: Diffuse disc bulge towards right foraminal zone; moderate right foraminal stenoses; mild facet joint degenerative changes Additional Findings: None IMPRESSION: Vertebral compression fractures at the L1 and L3 with the methylmethacrylate; vertebral fracture orion g the superior endplate of L2 unchanged; no new fracture Moderate thecal sac stenoses and right foraminal stenoses at L4-L5 and right foraminal stenoses at L4 -L5 and L5-S1 disc levels Signer Name: Bridget Toscano MD Signed: 06/26/2021 1:10 PM Workstation Name: [id number]
[2021-06-26] MEDS: GABAPENTIN 300 MG CAP PO SCH ×2 (14:38→22:24)
[2021-06-26] MEDS ORDERED: MECLIZINE 12.5 MG TAB PO PRN (16:43)
[2021-06-26] MEDS: MAGNESIUM HYDROXIDE (MOM) ORAL LIQD UDC PO PRN (17:12)
--- NOTE | 2021-06-26 20:47 | Progress Note ---
Assessment and Plan 70 yo right-handed female with htn, hiv/aids, copd, who presents with light- headedness w/ worsening with sitting/standing up and noted with unsteadiness while light-headed w/ unsteadiness of gait. Patient denies any focal neurologic deficits. 1. Light-headed / Dizziness / Presyncope - mri brain and cta head/neck are unremarkable, non-neurogenic workup per primary team. 2. HIV/AIDS - pt has clariified that the H&P is incorrect and she does not have a hx of HIV/AIDS (per last progress note), therefore no csf studies needed at present. 3. Hypertension - aim for normotension. 4. Lower Back Pain w/ wo urinary retention - per last hospitalist note, I agree with orthopedic surgery to be on board; consider bladder scan to confirm objective finding; unfortunately, teleneurology does not allow for assessment of potential spinal pathologies secondary to detailed bedside exam that is needed to make such an assessment; may need to be transferred to a facility with bedside neurology and/or inpatient [id number] to help with the orthopedic surgery assessment. Communicated this last piece of information to the hospitalist. Carter Scott MD Neurology Subjective Date of service: 06/26/21 Principal diagnosis: Headache, Dizziness, Low Back Pain Interval history: Patient requested to speak to me. Discussed the case via telephone as televideo is not available at this time. She had questions about the lower back pain and associated weakness and difficulty with urination. She notes "I didn't think there was anyhting wrong with my head for the headache and dizziness" after we discussed the mri / cta results. She is unaware that Orthopedic Surgery has been consulted regarding her lower back findings on ct lumbar spine. Objective - Exam Narrative Exam: Patient not seen. - Vital Sign Vital Signs - 12hr 06/26/21 06/26/21 06/26/21 10:00 11:42 16:32 Temperature 98.3 F 98.3 F Pulse Rate 89 82 Respiratory 15 14 Rate Blood Pressure 114/83 119/80 O2 Sat by Pulse 98 92 93 Oximetry 06/26/21 19:07 Temperature 99.0 F Pulse Rate 83 Respiratory 16 Rate Blood Pressure 120/79 O2 Sat by Pulse 91 Oximetry - Laboratory Findings CBC and BMP: 06/24/21 05:33 06/24/21 05:33 Abnormal Lab Findings: Abnormal Labs 06/23/21 06/23/21 06/23/21 17:20 17:33 17:33 Lymph % (Auto) [place] % (Auto) 9.1 H Potassium 3.5 L Chloride Glucose 122 H POC Glucose 140 H Cholesterol LDL Cholesterol Direct 06/24/21 06/24/21 05:33 05:33 Lymph % (Auto) 40.4 H [place] % (Auto) 12.6 H Potassium 3.4 L Chloride 108.9 H Glucose 111 H POC Glucose Cholesterol 241 H LDL Cholesterol Direct 183 H
[2021-06-27 05:03] LABS: Blood Urea Nitrogen 10 mg/dL (7-17); Hemolysis Index 7
[2021-06-27 05:17] LABS: BUN/Creatinine Ratio 14
[2021-06-27] MEDS: GABAPENTIN 300 MG CAP PO SCH ×4 (07:38→21:36)
[2021-06-27] MEDS: ASPIRIN 325 MG TAB PO SCH (10:08)
[2021-06-27] MEDS: FAMOTIDINE 20 MG TAB PO SCH ×2 (10:08→21:36)
--- NOTE | 2021-06-27 11:11 | Progress Note ---
Subjective Date of service: 06/27/21 Principal diagnosis: Headache, Dizziness, Low Back Pain Interval history: NSGY update: received consultation from Dr. Umer Castle regarding pt's CT L spine results. I have reviewed the results in detail. There are severe chronic degenerative changes noted without acute finding.The degree of thecal sac and nerve root compression is difficult to determine. I recommend MRI L spine without contrast for further evaluation. I will follow up MRI results and fo rmulate treatment plan. Objective - Vital Sign Vital Signs - 12hr 06/27/21 06/27/21 06/27/21 03:47 08:51 10:00 Temperature 97.7 F 97.5 F L Pulse Rate 73 87 82 Respiratory 16 18 Rate Blood Pressure 117/63 95/71 O2 Sat by Pulse 93 94 98 Oximetry - Laboratory Findings CBC and BMP: 06/24/21 05:33 06/27/21 04:04 Abnormal Lab Findings: Abnormal Labs 06/23/21 06/23/21 06/23/21 17:20 17:33 17:33 Lymph % (Auto) [place] % (Auto) 9.1 H Potassium 3.5 L Chloride Glucose 122 H POC Glucose 140 H Magnesium Cholesterol LDL Cholesterol Direct 06/24/21 06/24/21 06/27/21 05:33 05:33 04:04 Lymph % (Auto) 40.4 H [place] % (Auto) 12.6 H Potassium 3.4 L Chloride 108.9 H 109.0 H Glucose 111 H POC Glucose Magnesium 2.40 H Cholesterol 241 H LDL Cholesterol Direct 183 H
--- NOTE | 2021-06-27 20:16 | Progress Note ---
Assessment and Plan Assessment and plan: No history of HIV[patient denies]error Patient was seen by private orthopedic/neuro from [facility], patient does not know the details. We will try to get records from [facility] --Chronic low back pain /lower extremity numbness and weakness CT lumbar spine: 06/27/2019; chronic findings Vertebral compression fracture at L1 and L3 as well as L2 [no new fractures] Also has moderate thecal sac stenosis right foraminal stenosis at L4-L5 and L5- S1 disc levels. -Ortho surgeon Dr. Castle's evaluation and recommendations noted and appreciated Follow recommendations -Neurosurgeon Dr. Peres evaluation and recommendations noted and appreciated MRI lumbar spine ordered, follow report and manage as needed -Telemetry neurologist evaluation and recommendations noted and appreciated PT[physical therapy] recommended home health PT and rolling walker -- Dizziness/generalized weakness Fall precautions physical therapy occupational therapy Neurology evaluated, Extensive negative neuro work-up , acute CVA ruled out Will continue the home medication, PT OT and speech therapy --Constipation; improved Plenty fluids and fiber, milk of magnesia 1 dose now and daily as needed for constipation --COPD (chronic obstructive pulmonary disease) well compensated Oxygen via nasal cannula 3 L/min. DuoNeb by nebulizer every 4 hours. Albuterol via nebulizer every 4 hours as needed -- Hypertension; moderate control Labetalol 10 mg IV every 1 hour as needed. Closely monitor blood pressures and adjust medications as needed --Full CODE STATUS; --DVT prophylaxis SCD for DVT prophylaxis. No pharmacologic anticoagulation [Anticipating surgical intervention] We will start Lovenox subcu for prophylaxis Closely monitor the patient and adjust the management as needed Plan of care reviewed with the patient and her nurse Awaiting records from [facility] For some reason patient is not getting her old records Not giving the names of her [place] neurologist, neurosurgeon, orthopedic surgeons names Patient reports that she has seen many physicians in the past and had extensive work-up Details are not known Disposition; follow MRI, try to get medical records from [place] or from the patient Follow consultants recommendations Plan of care reviewed with the patient and her nurse History Interval history: I have seen and examined the patient at the bedside Patient's chart and medications reviewed Patient patient has multiple chronic lumbar spine abnormalities CT lumbar spine evaluated by orthopedic surgeon as well as neurosurgeon Dr. Larisa Dey requested MRI brain without contrast Patient says that she feels slightly better today Vital signs noted Hospitalist Physical - Constitutional Vitals: Temp Pulse Resp BP Pulse Ox 98.1 F 69 18 108/76 96 06/27/21 16:27 06/27/21 16:27 06/27/21 16:27 06/27/21 16:27 06/27/21 16:27 General appearance: Present: no acute distress, mild distress, well-nourished - EENT Eyes: Present: PERRL, EOM intact - Neck Neck: Present: supple, normal ROM - Respiratory Respiratory effort: normal Respiratory: bilateral: diminished, negative: rales, rhonchi, wheezing - Cardiovascular Rhythm: regular Heart Sounds: Present: S1 & S2 - Extremities Extremities: no ischemia, No edema - Abdominal General gastrointestinal: soft, non-tender, non-distended, normal bowel sounds - Integumentary Integumentary: Present: clear, warm - Psychiatric Psychiatric: appropriate mood/affect, cooperative - Neurologic Neurologic: CNII-XII intact, moves all extremities HEART Score - HEART Score Troponin: Troponin T < 0.010 ng/mL (0.00-0.029) 06/23/21 17:33 Results - Labs CBC & Chem 7: 06/24/21 05:33 06/27/21 04:04 Labs: Laboratory Last Values WBC 4.6 K/mm3 (4.5-11.0) 06/24/21 05:33 RBC 3.76 M/mm3 (3.65-5.03) 06/24/21 05:33 Hgb 11.7 gm/dl (10.1-14.3) 06/24/21 05:33 Hct 35.5 % (30.3-42.9) 06/24/21 05:33 MCV 94 fl (79-97) 06/24/21 05:33 MCH 31 pg (28-32) 06/24/21 05:33 MCHC 33 % (30-34) 06/24/21 05:33 RDW 14.2 % (13.2-15.2) 06/24/21 05:33 Plt Count 185 K/mm3 (140-440) 06/24/21 05:33 Lymph % (Auto) 40.4 % (13.4-35.0) H 06/24/21 05:33 [place] % (Auto) 12.6 % (0.0-7.3) H 06/24/21 05:33 Eos % (Auto) 3.4 % (0.0-4.3) 06/24/21 05:33 Baso % (Auto) 0.4 % (0.0-1.8) 06/24/21 05:33 Lymph # (Auto) 1.9 K/mm3 (1.2-5.4) 06/24/21 05:33 [place] # (Auto) 0.6 K/mm3 (0.0-0.8) 06/24/21 05:33 Eos # (Auto) 0.2 K/mm3 (0.0-0.4) 06/24/21 05:33 Baso # (Auto) 0.0 K/mm3 (0.0-0.1) 06/24/21 05:33 Seg Neutrophils % 43.2 % (40.0-70.0) 06/24/21 05:33 Seg Neutrophils # 2.0 K/mm3 (1.8-7.7) 06/24/21 05:33 Sodium 145 mmol/L (137-145) 06/27/21 04:04 Potassium 4.0 mmol/L (3.6-5.0) 06/27/21 04:04 Chloride 109.0 mmol/L (98-107) H 06/27/21 04:04 Carbon Dioxide 26 mmol/L (22-30) 06/27/21 04:04 Anion Gap 14 mmol/L 06/27/21 04:04 BUN 10 mg/dL (7-17) 06/27/21 04:04 Creatinine 0.7 mg/dL (0.6-1.2) 06/27/21 04:04 Estimated GFR > 60 ml/min 06/27/21 04:04 BUN/Creatinine Ratio 14 % 06/27/21 04:04 Glucose 91 mg/dL (65-100) 06/27/21 04:04 POC Glucose 140 mg/dL (70-105) H 06/23/21 17:20 Calcium 9.0 mg/dL (8.4-10.2) 06/27/21 04:04 Phosphorus 3.10 mg/dL (2.5-4.5) 06/27/21 04:04 Magnesium 2.40 mg/dL (1.7-2.3) H 06/27/21 04:04 Total Bilirubin 1.00 mg/dL (0.1-1.2) 06/23/21 17:33 AST 14 units/L (5-40) 06/23/21 17:33 ALT 10 units/L (7-56) 06/23/21 17:33 Alkaline Phosphatase 87 units/L (35-129) 06/23/21 17:33 Total Creatine Kinase 106 units/L (30-135) 06/23/21 17:33 CK-MB (CK-2) 2.6 ng/mL (0.0-4.0) 06/23/21 17:33 CK-MB (CK-2) Rel Index 2.4 (0-4) 06/23/21 17:33 Troponin T < 0.010 ng/mL (0.00-0.029) 06/23/21 17:33 Total Protein 7.1 g/dL (6.3-8.2) 06/23/21 17:33 Albumin 4.6 g/dL (3.9-5) 06/23/21 17:33 Albumin/Globulin Ratio 1.8 % 06/23/21 17:33 Triglycerides 47 mg/dL (2-149) 06/24/21 05:33 Cholesterol 241 mg/dL (50-199) H 06/24/21 05:33 LDL Cholesterol Direct 183 mg/dL (50-130) H 06/24/21 05:33 HDL Cholesterol 42 mg/dL (40-59) 06/24/21 05:33 Cholesterol/HDL Ratio 5.73 % 06/24/21 05:33 Plasma/Serum Alcohol < 0.01 % (0-0.07) 06/23/21 17:33 [place]all[place]/IV: Voiding Method Toilet Active Medications - Current Medications Current Medications: Generic Name Dose Route Start Last Admin Trade Name Freq PRN Reason Stop Dose Admin Acetaminophen 650 mg 06/23/21 21:16 Acetaminophen 325 Mg Tab PO Q4H PRN Pain MILD(1-3)/Fever >100.5/BARKER Albuterol 2.5 mg 06/23/21 21:16 Albuterol 2.5 Mg/3 Ml Nebu IH Q3HRT PRN Shortness Of Breath Aspirin 325 mg 06/24/21 10:00 06/27/21 10:08 Aspirin 325 Mg Tab PO 325 mg QDAY MAIK Administration Atorvastatin Calcium 40 mg 06/23/21 22:00 06/26/21 22:24 Atorvastatin 40 Mg Tab PO 40 mg QHS MAIK Administration Famotidine 20 mg 06/23/21 22:00 06/27/21 10:08 Famotidine 20 Mg Tab PO 20 mg BID MAIK Administration Gabapentin 300 mg 06/26/21 14:00 06/27/21 13:56 Gabapentin 300 Mg Cap PO Not Given Q8HR MAIK Labetalol HCl 10 mg 06/23/21 21:16 Labetalol 20 Mg/4 Ml Inj IV Q5MIN PRN to maintain SBP < 180 Magnesium Hydroxide 30 ml 06/26/21 16:30 06/26/21 17:12 Magnesium Hydroxide (Mom) Oral Liqd Udc PO 30 ml Q4H PRN Administration Constipation Meclizine HCl 12.5 mg 06/26/21 16:43 Meclizine 12.5 Mg Tab PO Q12H PRN Vertigo Morphine Sulfate 2 mg 06/23/21 21:16 06/25/21 00:05 Morphine 2 Mg/1 Ml Inj IV 2 mg Q4H PRN Administration Pain, Moderate (4-6) Ondansetron HCl 4 mg 06/23/21 21:16 06/24/21 00:49 Ondansetron 4 Mg/2 Ml Inj IV 4 mg Q8H PRN Administration Nausea And Vomiting Sodium Chloride 10 ml 06/23/21 22:00 06/27/21 10:08 Sodium Chloride 0.9% 10 Ml Flush Syringe IV 10 ml BID MAIK Administration Sodium Chloride 10 ml 06/23/21 21:16 Sodium Chloride 0.9% 10 Ml Flush Syringe IV PRN PRN LINE FLUSH
[2021-06-27] MEDS: ENOXAPARIN 40 MG/0.4 ML INJ SUB-Q SCH (21:36)
[2021-06-28] MEDS: GABAPENTIN 300 MG CAP PO SCH ×3 (05:33→22:42)
[2021-06-28] MEDS: ASPIRIN 325 MG TAB PO SCH (10:06)
[2021-06-28] MEDS: FAMOTIDINE 20 MG TAB PO SCH ×2 (10:07→22:42)
[2021-06-28] MEDS: ENOXAPARIN 40 MG/0.4 ML INJ SUB-Q SCH (22:42)
[2021-06-29] MEDS: GABAPENTIN 300 MG CAP PO SCH ×3 (06:00→21:07)
[2021-06-29] MEDS: FAMOTIDINE 20 MG TAB PO SCH ×2 (09:15→21:07)
[2021-06-29] MEDS: ASPIRIN 325 MG TAB PO SCH (09:15)
--- NOTE | 2021-06-29 11:51 | Magnetic Resonance Report ---
MR lumbar spine wo con INDICATION / CLINICAL INFORMATION: 70 years Female; Abnormal CT/low back pain[rec neurosurg ]. TECHNIQUE: Multisequence, multiplanar images of the lumbar spine were obtained. COMPARISON: The study is compared to previous MRI of 11/10/2018. FINDINGS: ALIGNMENT: There is mild dextroscoliosis of the lumbar spine with apex at L1 and multilevel advanced degenerative disc changes. VERTEBRAE:There has been interval vertebral augmentation of L3 with resolving edema from the previous MRI of 11/10/2018. There is continued marked chronic at compression or fracture at L1 without signifi cant interval change. The retropulsion at this level. Deforms the ventral thecal sac with mild efface ment of the subarachnoid space. There is no direct cord compression. VISUALIZED SPINAL CORD: The study is limited by motion. However, the distal spinal cord grossly demon strate appropriate signal intensity. [id number] ANALYSIS: L1-2: The spondylosis mildly encroaches on the lateral recesses bilaterally. Additionally, there is m ild left neural foraminal narrowing. L2-3: The spondylosis and facet joint hypertrophy contribute to moderate to marked spinal stenosis. A dditionally at, there is moderate left neural foraminal narrowing. L3-4: The degenerative changes are greater on the right with mild effacement of the right lateral rec ess. Additionally, there is moderate right and mild left neural foraminal narrowing. L4-5: The degenerative the changes mildly encroach on the right lateral recess. Additionally, the rig ht from narrowing displaces the exiting right L4 nerve root sheath. L5-S1: There is a slight disc bulge without significant central spinal stenosis. The disc bulge exten ds into the right neural foramen with associated facet joint hypertrophy which encroaches on the exit ing right L5 nerve root sheath. PARASPINAL SOFT TISSUES: No significant abnormality. ADDITIONAL FINDINGS: No epidural collections are identified. IMPRESSION: 1. There has been interval vertebral augmentation at L3 and continued marked chronic compression frac ture at L1-2 as described. 2. There is dextroscoliosis of the lumbar spine with multilevel persistent degenerative changes which result in spinal stenosis and neural foraminal narrowing as detailed above. Signer Name: Steve Banegas MD Signed: 06/29/2021 11:47 AM Workstation Name: [employer]
--- NOTE | 2021-06-29 12:26 | Progress Note ---
Assessment and Plan Assessment and plan: Occupational Therapy; recommend equipment and subacute rehab placement And physical therapy; recommend cane and home health PT DC planning per case management and patient is medically stable; Patient was seen by private orthopedic/neuro from [facility], patient does not know the details. We will try to get records from [facility] --Chronic low back pain /old history of L3 compression fracture CT lumbar spine: 06/27/2019; chronic findings Vertebral compression fracture at L1 and L3 as well as L2 [no new fractures] Also has moderate thecal sac stenosis right foraminal stenosis at L4-L5 and L5- S1 disc levels. -Ortho surgeon Dr. Castle's evaluation and recommendations noted and appreciated Follow recommendations -Neurosurgeon Dr. Peres evaluation and recommendations noted and appreciated MRI lumbar spine ordered, follow report and manage as needed -Telemetry neurologist evaluation and recommendations noted and appreciated PT[physical therapy] recommended home health PT and rolling walker --Chronic multilevel degenerative lumbar spine disease With lower extremity weakness Continue pain medications, gabapentin for lower extremity neuropathy Physical therapy, Occupational Therapy --Dizziness/generalized weakness/ Fall precautions physical therapy occupational therapy Neurology evaluated, Extensive negative neuro work-up , acute CVA ruled out Will continue the home medication, PT OT and speech therapy --Constipation; improved Plenty fluids and fiber, milk of magnesia 1 dose now and daily as needed for constipation --COPD (chronic obstructive pulmonary disease) well compensated Oxygen via nasal cannula 3 L/min. DuoNeb by nebulizer every 4 hours. Albuterol via nebulizer every 4 hours as needed -- Hypertension; moderate control Labetalol 10 mg IV every 1 hour as needed. Closely monitor blood pressures and adjust medications as needed --Full CODE STATUS; --DVT prophylaxis SCD for DVT prophylaxis. No pharmacologic anticoagulation [Anticipating surgical intervention] We will start Lovenox subcu for prophylaxis Closely monitor the patient and adjust the management as needed Plan of care reviewed with the patient and her nurse Awaiting records from [facility] For some reason patient is not getting her old records Not giving the names of her [place] neurologist, neurosurgeon, orthopedic surgeons names Patient reports that she has seen many physicians in the past and had extensive work-up Details are not known Disposition; follow MRI, try to get medical records from [place] or from the patient Follow consultants recommendations Plan of care reviewed with the patient and her nurse Brief history and Hospital course 70-year-old female patient with significant history of status post fall and all history of compression fracture of the 3, chronic degenerative lumbar spine disease presented to the emergency room with low back pain and lower extremity weakness and numbness patient also has severe headache and dizziness patient had an extensive negative neuro/CVA work-up. Neurology and neurosurgery and orthopedics have evaluated the patient/neurosurgeon recommended MRI brain 06/28/2021; patient was evaluated by neurosurgeon Dr. Peres recommended MRI lumbar spine. Orthopedic surgeon and neurology following Closely monitor and adjust the management as needed 06/29/2021; patient feels slightly better, patient had MRI lumbar spine today Pending report, follow neurosurgery/orthopedic surgeon recommendations Patient request subacute rehab/recheck with case management Disposition follow orthopedic, neurosurgeon recommendations DC planning per case management possible subacute if patient is eligible History Interval history: I have seen and examined the patient at the bedside Patient's chart and medications reviewed Patient feels slightly better today Had MRI lumbar spin vital signs noted Hospitalist Physical - Constitutional Vitals: Temp Pulse Resp BP Pulse Ox 98.1 F 66 18 107/66 97 06/29/21 08:14 06/29/21 08:14 06/29/21 08:14 06/29/21 08:14 06/29/21 08:33 General appearance: Present: no acute distress, mild distress, well-nourished - EENT Eyes: Present: PERRL, EOM intact - Neck Neck: Present: supple, normal ROM - Respiratory Respiratory effort: normal Respiratory: bilateral: diminished, negative: rales, rhonchi, wheezing - Cardiovascular Rhythm: regular Heart Sounds: Present: S1 & S2 - Extremities Extremities: no ischemia, No edema - Abdominal General gastrointestinal: soft, non-tender, non-distended, normal bowel sounds - Integumentary Integumentary: Present: clear, warm - Psychiatric Psychiatric: appropriate mood/affect, cooperative - Neurologic Neurologic: moves all extremities HEART Score - HEART Score Troponin: Troponin T < 0.010 ng/mL (0.00-0.029) 06/23/21 17:33 Results - Labs CBC & Chem 7: 06/24/21 05:33 06/27/21 04:04 Labs: Laboratory Last Values WBC 4.6 K/mm3 (4.5-11.0) 06/24/21 05:33 RBC 3.76 M/mm3 (3.65-5.03) 06/24/21 05:33 Hgb 11.7 gm/dl (10.1-14.3) 06/24/21 05:33 Hct 35.5 % (30.3-42.9) 06/24/21 05:33 MCV 94 fl (79-97) 06/24/21 05:33 MCH 31 pg (28-32) 06/24/21 05:33 MCHC 33 % (30-34) 06/24/21 05:33 RDW 14.2 % (13.2-15.2) 06/24/21 05:33 Plt Count 185 K/mm3 (140-440) 06/24/21 05:33 Lymph % (Auto) 40.4 % (13.4-35.0) H 06/24/21 05:33 [place] % (Auto) 12.6 % (0.0-7.3) H 06/24/21 05:33 Eos % (Auto) 3.4 % (0.0-4.3) 06/24/21 05:33 Baso % (Auto) 0.4 % (0.0-1.8) 06/24/21 05:33 Lymph # (Auto) 1.9 K/mm3 (1.2-5.4) 06/24/21 05:33 [place] # (Auto) 0.6 K/mm3 (0.0-0.8) 06/24/21 05:33 Eos # (Auto) 0.2 K/mm3 (0.0-0.4) 06/24/21 05:33 Baso # (Auto) 0.0 K/mm3 (0.0-0.1) 06/24/21 05:33 Seg Neutrophils % 43.2 % (40.0-70.0) 06/24/21 05:33 Seg Neutrophils # 2.0 K/mm3 (1.8-7.7) 06/24/21 05:33 Sodium 145 mmol/L (137-145) 06/27/21 04:04 Potassium 4.0 mmol/L (3.6-5.0) 06/27/21 04:04 Chloride 109.0 mmol/L (98-107) H 06/27/21 04:04 Carbon Dioxide 26 mmol/L (22-30) 06/27/21 04:04 Anion Gap 14 mmol/L 06/27/21 04:04 BUN 10 mg/dL (7-17) 06/27/21 04:04 Creatinine 0.7 mg/dL (0.6-1.2) 06/27/21 04:04 Estimated GFR > 60 ml/min 06/27/21 04:04 BUN/Creatinine Ratio 14 % 06/27/21 04:04 Glucose 91 mg/dL (65-100) 06/27/21 04:04 POC Glucose 140 mg/dL (70-105) H 06/23/21 17:20 Calcium 9.0 mg/dL (8.4-10.2) 06/27/21 04:04 Phosphorus 3.10 mg/dL (2.5-4.5) 06/27/21 04:04 Magnesium 2.40 mg/dL (1.7-2.3) H 06/27/21 04:04 Total Bilirubin 1.00 mg/dL (0.1-1.2) 06/23/21 17:33 AST 14 units/L (5-40) 06/23/21 17:33 ALT 10 units/L (7-56) 06/23/21 17:33 Alkaline Phosphatase 87 units/L (35-129) 06/23/21 17:33 Total Creatine Kinase 106 units/L (30-135) 06/23/21 17:33 CK-MB (CK-2) 2.6 ng/mL (0.0-4.0) 06/23/21 17:33 CK-MB (CK-2) Rel Index 2.4 (0-4) 06/23/21 17:33 Troponin T < 0.010 ng/mL (0.00-0.029) 06/23/21 17:33 Total Protein 7.1 g/dL (6.3-8.2) 06/23/21 17:33 Albumin 4.6 g/dL (3.9-5) 06/23/21 17:33 Albumin/Globulin Ratio 1.8 % 06/23/21 17:33 Triglycerides 47 mg/dL (2-149) 06/24/21 05:33 Cholesterol 241 mg/dL (50-199) H 06/24/21 05:33 LDL Cholesterol Direct 183 mg/dL (50-130) H 06/24/21 05:33 HDL Cholesterol 42 mg/dL (40-59) 06/24/21 05:33 Cholesterol/HDL Ratio 5.73 % 06/24/21 05:33 Plasma/Serum Alcohol < 0.01 % (0-0.07) 06/23/21 17:33 Caballero/IV: Voiding Method Toilet Active Medications - Current Medications Current Medications: Generic Name Dose Route Start Last Admin Trade Name Freq PRN Reason Stop Dose Admin Acetaminophen 650 mg 06/23/21 21:16 Acetaminophen 325 Mg Tab PO Q4H PRN Pain MILD(1-3)/Fever >100.5/BARKER Albuterol 2.5 mg 06/23/21 21:16 Albuterol 2.5 Mg/3 Ml Nebu IH Q3HRT PRN Shortness Of Breath Aspirin 325 mg 06/24/21 10:00 06/29/21 09:15 Aspirin 325 Mg Tab PO 325 mg QDAY MAIK Administration Atorvastatin Calcium 40 mg 06/23/21 22:00 06/28/21 22:42 Atorvastatin 40 Mg Tab PO 40 mg QHS MAIK Administration Enoxaparin Sodium 40 mg 06/27/21 22:00 06/28/21 22:42 Enoxaparin 40 Mg/0.4 Ml Inj SUB-Q 40 mg QDAY@2200 MAIK Administration Protocol Famotidine 20 mg 06/23/21 22:00 06/29/21 09:15 Famotidine 20 Mg Tab PO 20 mg BID MAIK Administration Gabapentin 300 mg 06/26/21 14:00 06/29/21 06:00 Gabapentin 300 Mg Cap PO 300 mg Q8HR MAIK Administration Labetalol HCl 10 mg 06/23/21 21:16 Labetalol 20 Mg/4 Ml Inj IV Q5MIN PRN to maintain SBP < 180 Magnesium Hydroxide 30 ml 06/26/21 16:30 06/26/21 17:12 Magnesium Hydroxide (Mom) Oral Liqd Udc PO 30 ml Q4H PRN Administration Constipation Meclizine HCl 12.5 mg 06/26/21 16:43 06/29/21 09:15 Meclizine 12.5 Mg Tab PO 12.5 mg Q12H PRN Administration Vertigo Morphine Sulfate 2 mg 06/23/21 21:16 06/25/21 00:05 Morphine 2 Mg/1 Ml Inj IV 2 mg Q4H PRN Administration Pain, Moderate (4-6) Ondansetron HCl 4 mg 06/23/21 21:16 06/24/21 00:49 Ondansetron 4 Mg/2 Ml Inj IV 4 mg Q8H PRN Administration Nausea And Vomiting Sodium Chloride 10 ml 06/23/21 22:00 06/28/21 22:42 Sodium Chloride 0.9% 10 Ml Flush Syringe IV 10 ml BID MAIK Administration Sodium Chloride 10 ml 06/23/21 21:16 Sodium Chloride 0.9% 10 Ml Flush Syringe IV PRN PRN LINE FLUSH
--- NOTE | 2021-06-29 12:27 | Progress Note ---
Assessment and Plan Assessment and plan: Patient was seen by private orthopedic/neuro/neurosurgeon from [facility], patient does not know the details. We will try to get records from [facility] --Chronic low back pain /lower extremity numbness and weakness CT lumbar spine: 06/27/2019; chronic findings Vertebral compression fracture at L1 and L3 as well as L2 [no new fractures] Also has moderate thecal sac stenosis right foraminal stenosis at L4-L5 and L5- S1 disc levels. -Ortho surgeon Dr. Castle's evaluation and recommendations noted and appreciated Follow recommendations -Neurosurgeon Dr. Peres evaluation and recommendations noted and appreciated MRI lumbar spine ordered, follow report and manage as needed -Telemetry neurologist evaluation and recommendations noted and appreciated PT[physical therapy] recommended home health PT and rolling walker -- Dizziness/generalized weakness Fall precautions physical therapy occupational therapy Neurology evaluated, Extensive negative neuro work-up , acute CVA ruled out Will continue the home medication, PT OT and speech therapy --Constipation; improved Plenty fluids and fiber, milk of magnesia 1 dose now and daily as needed for constipation --COPD (chronic obstructive pulmonary disease) well compensated Oxygen via nasal cannula 3 L/min. DuoNeb by nebulizer every 4 hours. Albuterol via nebulizer every 4 hours as needed -- Hypertension; moderate control Labetalol 10 mg IV every 1 hour as needed. Closely monitor blood pressures and adjust medications as needed --Full CODE STATUS; --DVT prophylaxis SCD for DVT prophylaxis. No pharmacologic anticoagulation [Anticipating surgical intervention] We will start Lovenox subcu for prophylaxis Closely monitor the patient and adjust the management as needed Plan of care reviewed with the patient and her nurse Awaiting records from [facility] For some reason patient is not getting her old records Not giving the names of her [place] neurologist, neurosurgeon, orthopedic surgeons names Patient reports that she has seen many physicians in the past and had extensive work-up Details are not known Disposition; follow MRI, try to get medical records from [place] or from the patient Follow consultants recommendations Plan of care reviewed with the patient and her nurse 06/28/2021; patient was evaluated by neurosurgeon Dr. Peres recommended MRI lumbar spine. Orthopedic surgeon and neurology following Closely monitor and adjust the management as needed History Interval history: I have seen and examined the patient at the bedside this morning Patient's chart and medications reviewed Patient continues to have intermittent low back pain Neurosurgeon evaluated the patient and recommended MRI brain Vital signs Hospitalist Physical - Constitutional Vitals: Temp Pulse Resp BP Pulse Ox 98.1 F 66 18 107/66 97 06/29/21 08:14 06/29/21 08:14 06/29/21 08:14 06/29/21 08:14 06/29/21 08:33 General appearance: Present: no acute distress, mild distress, well-nourished - EENT Eyes: Present: PERRL, EOM intact - Neck Neck: Present: supple, normal ROM - Respiratory Respiratory effort: normal Respiratory: bilateral: diminished, negative: rales, rhonchi, wheezing - Cardiovascular Rhythm: regular Heart Sounds: Present: S1 & S2 - Extremities Extremities: no ischemia, No edema - Abdominal General gastrointestinal: soft, non-tender, non-distended, normal bowel sounds - Integumentary Integumentary: Present: clear, warm - Psychiatric Psychiatric: appropriate mood/affect, cooperative - Neurologic Neurologic: moves all extremities HEART Score - HEART Score Troponin: Troponin T < 0.010 ng/mL (0.00-0.029) 06/23/21 17:33 Results - Labs CBC & Chem 7: 06/24/21 05:33 06/27/21 04:04 Labs: Laboratory Last Values WBC 4.6 K/mm3 (4.5-11.0) 06/24/21 05:33 RBC 3.76 M/mm3 (3.65-5.03) 06/24/21 05:33 Hgb 11.7 gm/dl (10.1-14.3) 06/24/21 05:33 Hct 35.5 % (30.3-42.9) 06/24/21 05:33 MCV 94 fl (79-97) 06/24/21 05:33 MCH 31 pg (28-32) 06/24/21 05:33 MCHC 33 % (30-34) 06/24/21 05:33 RDW 14.2 % (13.2-15.2) 06/24/21 05:33 Plt Count 185 K/mm3 (140-440) 06/24/21 05:33 Lymph % (Auto) 40.4 % (13.4-35.0) H 06/24/21 05:33 Leslie % (Auto) 12.6 % (0.0-7.3) H 06/24/21 05:33 Eos % (Auto) 3.4 % (0.0-4.3) 06/24/21 05:33 Baso % (Auto) 0.4 % (0.0-1.8) 06/24/21 05:33 Lymph # (Auto) 1.9 K/mm3 (1.2-5.4) 06/24/21 05:33 Leslie # (Auto) 0.6 K/mm3 (0.0-0.8) 06/24/21 05:33 Eos # (Auto) 0.2 K/mm3 (0.0-0.4) 06/24/21 05:33 Baso # (Auto) 0.0 K/mm3 (0.0-0.1) 06/24/21 05:33 Seg Neutrophils % 43.2 % (40.0-70.0) 06/24/21 05:33 Seg Neutrophils # 2.0 K/mm3 (1.8-7.7) 06/24/21 05:33 Sodium 145 mmol/L (137-145) 06/27/21 04:04 Potassium 4.0 mmol/L (3.6-5.0) 06/27/21 04:04 Chloride 109.0 mmol/L (98-107) H 06/27/21 04:04 Carbon Dioxide 26 mmol/L (22-30) 06/27/21 04:04 Anion Gap 14 mmol/L 06/27/21 04:04 BUN 10 mg/dL (7-17) 06/27/21 04:04 Creatinine 0.7 mg/dL (0.6-1.2) 06/27/21 04:04 Estimated GFR > 60 ml/min 06/27/21 04:04 BUN/Creatinine Ratio 14 % 06/27/21 04:04 Glucose 91 mg/dL (65-100) 06/27/21 04:04 POC Glucose 140 mg/dL (70-105) H 06/23/21 17:20 Calcium 9.0 mg/dL (8.4-10.2) 06/27/21 04:04 Phosphorus 3.10 mg/dL (2.5-4.5) 06/27/21 04:04 Magnesium 2.40 mg/dL (1.7-2.3) H 06/27/21 04:04 Total Bilirubin 1.00 mg/dL (0.1-1.2) 06/23/21 17:33 AST 14 units/L (5-40) 06/23/21 17:33 ALT 10 units/L (7-56) 06/23/21 17:33 Alkaline Phosphatase 87 units/L (35-129) 06/23/21 17:33 Total Creatine Kinase 106 units/L (30-135) 06/23/21 17:33 CK-MB (CK-2) 2.6 ng/mL (0.0-4.0) 06/23/21 17:33 CK-MB (CK-2) Rel Index 2.4 (0-4) 06/23/21 17:33 Troponin T < 0.010 ng/mL (0.00-0.029) 06/23/21 17:33 Total Protein 7.1 g/dL (6.3-8.2) 06/23/21 17:33 Albumin 4.6 g/dL (3.9-5) 06/23/21 17:33 Albumin/Globulin Ratio 1.8 % 06/23/21 17:33 Triglycerides 47 mg/dL (2-149) 06/24/21 05:33 Cholesterol 241 mg/dL (50-199) H 06/24/21 05:33 LDL Cholesterol Direct 183 mg/dL (50-130) H 06/24/21 05:33 HDL Cholesterol 42 mg/dL (40-59) 06/24/21 05:33 Cholesterol/HDL Ratio 5.73 % 06/24/21 05:33 Plasma/Serum Alcohol < 0.01 % (0-0.07) 06/23/21 17:33 Caballero/IV: Voiding Method Toilet Active Medications - Current Medications Current Medications: Generic Name Dose Route Start Last Admin Trade Name Freq PRN Reason Stop Dose Admin Acetaminophen 650 mg 06/23/21 21:16 Acetaminophen 325 Mg Tab PO Q4H PRN Pain MILD(1-3)/Fever >100.5/BARKER Albuterol 2.5 mg 06/23/21 21:16 Albuterol 2.5 Mg/3 Ml Nebu IH Q3HRT PRN Shortness Of Breath Aspirin 325 mg 06/24/21 10:00 06/29/21 09:15 Aspirin 325 Mg Tab PO 325 mg QDAY MAIK Administration Atorvastatin Calcium 40 mg 06/23/21 22:00 06/28/21 22:42 Atorvastatin 40 Mg Tab PO 40 mg QHS MAIK Administration Enoxaparin Sodium 40 mg 06/27/21 22:00 06/28/21 22:42 Enoxaparin 40 Mg/0.4 Ml Inj SUB-Q 40 mg QDAY@2200 MAIK Administration Protocol Famotidine 20 mg 06/23/21 22:00 06/29/21 09:15 Famotidine 20 Mg Tab PO 20 mg BID MAIK Administration Gabapentin 300 mg 06/26/21 14:00 06/29/21 06:00 Gabapentin 300 Mg Cap PO 300 mg Q8HR MAIK Administration Labetalol HCl 10 mg 06/23/21 21:16 Labetalol 20 Mg/4 Ml Inj IV Q5MIN PRN to maintain SBP < 180 Magnesium Hydroxide 30 ml 06/26/21 16:30 06/26/21 17:12 Magnesium Hydroxide (Mom) Oral Liqd Udc PO 30 ml Q4H PRN Administration Constipation Meclizine HCl 12.5 mg 06/26/21 16:43 06/29/21 09:15 Meclizine 12.5 Mg Tab PO 12.5 mg Q12H PRN Administration Vertigo Morphine Sulfate 2 mg 06/23/21 21:16 06/25/21 00:05 Morphine 2 Mg/1 Ml Inj IV 2 mg Q4H PRN Administration Pain, Moderate (4-6) Ondansetron HCl 4 mg 06/23/21 21:16 06/24/21 00:49 Ondansetron 4 Mg/2 Ml Inj IV 4 mg Q8H PRN Administration Nausea And Vomiting Sodium Chloride 10 ml 06/23/21 22:00 06/28/21 22:42 Sodium Chloride 0.9% 10 Ml Flush Syringe IV 10 ml BID MAIK Administration Sodium Chloride 10 ml 06/23/21 21:16 Sodium Chloride 0.9% 10 Ml Flush Syringe IV PRN PRN LINE FLUSH
--- NOTE | 2021-06-29 14:49 | Consultation ---
History of Present Illness - [facility] Consult date: 06/29/21 Consult reason: low back pain History of present illness: 70 y/o female with c/o chronic low back pain, recently Past History Past Medical History: COPD, HIV/AIDS, hypertension Past Surgical History: No surgical history Social history: other (No smoke) Family history: hypertension Medications and Allergies Allergies Allergy/AdvReac Type Severity Reaction Status Date / Time tramadol Allergy Rash,ITCHIN Verified 06/24/21 00:42 G acetaminophen AdvReac Rash,SEVERE Unverified 09/18/15 11:48 HEADACHE Estrogens AdvReac Unknown Verified 06/24/21 00:27 Home Medications Medication Instructions Recorded Confirmed Last Taken Type levoFLOXacin [Levaquin] 750 mg PO QDAY #4 tablet 11/11/18 06/27/21 Unknown Rx oxyCODONE /ACETAMINOPHEN [Percocet 1 tab PO Q6HR PRN #10 tablet 11/11/18 06/27/21 Unknown Rx 5/325] Active Meds: Active Medications Acetaminophen (Acetaminophen 325 Mg Tab) 650 mg PO Q4H PRN PRN Reason: Pain MILD(1-3)/Fever >100.5/BARKER Albuterol (Albuterol 2.5 Mg/3 Ml Nebu) 2.5 mg IH Q3HRT PRN PRN Reason: Shortness Of Breath Aspirin (Aspirin 325 Mg Tab) 325 mg PO QDAY [facility] Last Admin: 06/29/21 09:15 Dose: 325 mg Atorvastatin Calcium (Atorvastatin 40 Mg Tab) 40 mg PO QHS [facility] Last Admin: 06/28/21 22:42 Dose: 40 mg Enoxaparin Sodium (Enoxaparin 40 Mg/0.4 Ml Inj) 40 mg SUB-Q QDAY@2200 [facility]; Protocol Last Admin: 06/28/21 22:42 Dose: 40 mg Famotidine (Famotidine 20 Mg Tab) 20 mg PO BID [facility] Last Admin: 06/29/21 09:15 Dose: 20 mg Gabapentin (Gabapentin 300 Mg Cap) 300 mg PO Q8HR [facility] Last Admin: 06/29/21 06:00 Dose: 300 mg Labetalol HCl (Labetalol 20 Mg/4 Ml Inj) 10 mg IV Q5MIN PRN PRN Reason: to maintain SBP < 180 Magnesium Hydroxide (Magnesium Hydroxide (Mom) Oral Liqd Udc) 30 ml PO Q4H PRN PRN Reason: Constipation Last Admin: 06/26/21 17:12 Dose: 30 ml Meclizine HCl (Meclizine 12.5 Mg Tab) 12.5 mg PO Q12H PRN PRN Reason: Vertigo Last Admin: 06/29/21 09:15 Dose: 12.5 mg Morphine Sulfate (Morphine 2 Mg/1 Ml Inj) 2 mg IV Q4H PRN PRN Reason: Pain, Moderate (4-6) Last Admin: 06/25/21 00:05 Dose: 2 mg Ondansetron HCl (Ondansetron 4 Mg/2 Ml Inj) 4 mg IV Q8H PRN PRN Reason: Nausea And Vomiting Last Admin: 06/24/21 00:49 Dose: 4 mg Sodium Chloride (Sodium Chloride 0.9% 10 Ml Flush Syringe) 10 ml IV BID MAIK Last Admin: 06/28/21 22:42 Dose: 10 ml Sodium Chloride (Sodium Chloride 0.9% 10 Ml Flush Syringe) 10 ml IV PRN PRN PRN Reason: LINE FLUSH Assessment and Plan severe lumbar stenosis
[2021-06-29] MEDS: MORPHINE 2 MG/1 ML INJ IV PRN (21:08)
[2021-06-29] MEDS: ENOXAPARIN 40 MG/0.4 ML INJ SUB-Q SCH (21:16)
[2021-06-29] MEDS: MAGNESIUM HYDROXIDE (MOM) ORAL LIQD UDC PO PRN (21:19)
[2021-06-30] MEDS: GABAPENTIN 300 MG CAP PO SCH ×2 (06:22→14:06)
[2021-06-30 08:05] VITALS: BP 120/64
[2021-06-30] MEDS: ASPIRIN 325 MG TAB PO SCH (11:33)
[2021-06-30] MEDS: FAMOTIDINE 20 MG TAB PO SCH (11:33)
--- NOTE | 2021-06-30 15:55 | Progress Note ---
Subjective Date of service: 06/30/21 Principal diagnosis: Headache, Dizziness, Low Back Pain Interval history: NSGY update: imaging studies reviewed. There are extensive, multi-level chronic degenerative changes with associated coronal deformity. At this writing, I would not recommend inpatient surgical intervention. Recommend multi-modal pain management with outpatient PT referral. I will arrange for outpatient follow up for further evaluation. Objective - Vital Sign Vital Signs - 12hr 06/30/21 06/30/21 06/30/21 04:25 05:05 08:01 Temperature 97.9 F 97.6 F Pulse Rate 69 60 Respiratory 18 17 Rate Blood Pressure 108/61 120/64 O2 Sat by Pulse 100 96 97 Oximetry 06/30/21 10:00 Temperature Pulse Rate Respiratory Rate Blood Pressure O2 Sat by Pulse 100 Oximetry - Laboratory Findings CBC and BMP: 06/24/21 05:33 06/27/21 04:04 Abnormal Lab Findings: Abnormal Labs 06/23/21 06/23/21 06/23/21 17:20 17:33 17:33 Lymph % (Auto) Ross % (Auto) 9.1 H Potassium 3.5 L Chloride Glucose 122 H POC Glucose 140 H Magnesium Cholesterol LDL Cholesterol Direct 06/24/21 06/24/21 06/27/21 05:33 05:33 04:04 Lymph % (Auto) 40.4 H Ross % (Auto) 12.6 H Potassium 3.4 L Chloride 108.9 H 109.0 H Glucose 111 H POC Glucose Magnesium 2.40 H Cholesterol 241 H LDL Cholesterol Direct 183 H
--- NOTE | 2021-06-30 16:00 | Discharge Summary ---
Providers - Providers Date of Admission: 06/23/21 21:16 Date of discharge: 06/30/21 Attending physician: CARMELLA GASPAR 06/23/21 21:16 Consult to Physician [CONS] Routine Comment: Consulting Provider: SHAN BELTRAN Physician Instructions: Reason For Exam: Dizziness Occupational Therapy Evaluate and Treat [CONS] Routine Comment: Reason For Exam: Neuro deficits Physical Therapy Evaluation and Treat [CONS] Routine Comment: Reason For Exam: Neuro deficits 06/26/21 15:29 Consult to Physician [CONS] Routine Comment: Consulting Provider: TROY CASTRO Physician Instructions: Reason For Exam: Severe low back pain/chronic L-spine disease 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 Neurology and neurosurgery and orthopedics have evaluated the patient/neurosurgeon recommended MRI brain 06/28/2021; patient was evaluated by neurosurgeon Dr. Garcia recommended MRI lumbar spine. Orthopedic surgeon and neurology following Closely monitor and adjust the management as needed 06/29/2021; patient feels slightly better, patient had MRI lumbar spine today Pending report, follow neurosurgery/orthopedic surgeon recommendations Patient request subacute rehab/recheck with case management Disposition follow orthopedic, neurosurgeon recommendations DC planning per case management possible subacute if patient is eligible 06/30: MRI lumber spine:1. There has been interval vertebral augmentation at L3 and continued marked chronic compression fracture at L1-2 as described. 2. There is dextroscoliosis of the lumbar spine with multilevel persistent degenerative changes which result in spinal stenosis and neural foraminal narrowing. Discussed findings with DREW Garcia and recommended outpt f/u. patient will be discharge home in stable condition. Disposition: HOME HEALTH CARE SERVICE Final Discharge Diagnosis (Prints w/discharge instructions): --Chronic low back pain /old history of L3 compression fracture. --Chronic multilevel degenerative lumbar spine disease. --Dizziness/generalized weakness. --Constipation; improved. --COPD (chronic obstructive pulmonary disease) well compensated. -- Hypertension; moderate control Time spent for discharge: 34 minutes Core Measure Documentation - Palliative Care Palliative Care/ Comfort Measures: Not Applicable - Core Measures Any of the following diagnoses?: none Exam - Physical Exam Narrative exam: General appearance: Present: no acute distress, mild distress, well-nourished - EENT Eyes: Present: PERRL, EOM intact - Neck Neck: Present: supple, normal ROM - Respiratory Respiratory effort: normal Respiratory: bilateral: diminished, negative: rales, rhonchi, wheezing - Cardiovascular Rhythm: regular Heart Sounds: Present: S1 & S2 - Extremities Extremities: no ischemia, No edema - Abdominal General gastrointestinal: soft, non-tender, non-distended, normal bowel sounds - Integumentary Integumentary: Present: clear, warm - Psychiatric Psychiatric: appropriate mood/affect, cooperative - Neurologic Neurologic: moves all extremities - Constitutional Vitals: Temp Pulse Resp BP Pulse Ox 97.6 F 60 17 120/64 100 06/30/21 08:01 06/30/21 08:01 06/30/21 08:01 06/30/21 08:01 06/30/21 10:00 Plan Activity: advance as tolerated Weight Bearing Status: Non-Weight Bearing Diet: low fat, low salt Follow up with: PRIMARY CAREMD [Primary Care Provider] - 3-5 Days SANDRA GARCIA II, MD [Staff Physician] - 7 Days Prescriptions: Meclizine [Antivert] 12.5 mg PO Q12H PRN #30 tablet PRN Reason: Vertigo Gabapentin 300 mg PO Q8HR #30 capsule Aspirin EC [Halfprin EC] 81 mg PO QDAY #30 tablet.
== END 2021-06-30 19:15 | disposition home health service (06) | DRG 149 ==
LOC: ED 17:17 → 4A 21:16
PROVIDERS: ADMIT Hospitalist; ATTEND Internal Medicine
DX: R42 Dizziness and giddiness (principal); M48.061 Spinal stenosis, lumbar region without neurogenic claudication; J44.9 Chronic obstructive pulmonary disease, unspecified; I10 Essential (primary) hypertension; G89.29 Other chronic pain; M54.50 Low back pain, unspecified; K59.00 Constipation, unspecified; Z82.49 Family history of ischemic heart disease and other diseases of the circulatory system; Z88.5 Allergy status to narcotic agent; Z88.8 Allergy status to other drugs, medicaments and biological substances
CPT/HCPCS: 36415; 70450; 70498; 70544; 70551; 71045; 72131; 72148; 80048; 80053; 80061; 80320; 82550; 82553; 82962; 83735; 84100; 84484; 85025; 93005; 93306; 94640; 96374; 99285; G0378; J3490; C8929; G0480; J1650; J2270; J2405; J7030; J7042; Q9967